=== PATIENT | male | born 1945 | race Caucasian/White ===

== ENCOUNTER → 2023-05-15 16:22 | Outpatient (REF) | payer OTHER, SELFPAY ==
[2023-05-15 14:47] LABS: % Basophils 0.3 % (0-2); % Eosinophils 2.9 % (0-6); % Immature Granulocytes 0.6 % (0-0.5); % Lymphocytes 29.7 % (20.5-51.1); % Neutrophils 56.5 % (42.2-75.2); Absolute Eosinophils 0.3 10^3/uL (0-0.7); Absolute Immature Granulocytes 0.1 10^3/uL (0-0.05); Absolute Lymphocytes 2.6 10^3/uL (1.2-3.4); Absolute Monocytes 0.9 10^3/uL (0.1-0.6); Absolute Neutrophils 4.9 10^3/uL (1.4-6.5); Hematocrit 40.4 % (39.0-52.0); Hemoglobin 13.9 g/dL (13.0-18.0); Mean Corp Hgb Conc. 34.4 g/dL (33.0-37.0); Mean Corpuscular Hgb 30.9 pg (27.0-31.0); Mean Corpuscular Volume 89.8 fL (80.0-94.0); Mean Platelet Volume 10.1 fL (7.4-10.4); Platelet Count 196 10^3/uL (130-400); Red Cell Dist. Width 14.3 % (11.5-14.5); White Blood Cell Count 8.6 10^3/uL (4.8-10.8)
[2023-05-15 15:27] LABS: ALT (SGPT) 20 U/L (0-50); AST (SGOT) 32 U/L (17-59); Albumin 3.5 g/dl (3.5-5.0); Alkaline Phosphatase 84 U/L (38-126); Blood Urea Nitrogen 30 mg/dl (9-20); Calcium 8.9 mg/dl (8.4-10.2); Carbon Dioxide 20 mmol/L (22-30); Chloride 103 mmol/L (98-107); Direct Bilirubin 0.3 mg/dl (0.0-0.4); Glucose 133 mg/dl (70-99); Magnesium 2.2 mg/dl (1.6-2.3); Potassium 3.8 mmol/L (3.5-5.1); Sodium 136 mmol/L (135-145); Total Protein 5.9 g/dl (6.3-8.2); eGFR > 60.00
[2023-05-15 15:42] LABS: Free T4 1.25 ng/dl (0.78-2.19)
[2023-05-15 15:56] LABS: TSH Reflex To Free T4 7.94 uIU/ml (0.47-4.68)
== END ==
LOC: OIDL 16:22
PROVIDERS: ATTENDING PHYSICIAN Internal Medicine Hematology & Oncology
DX: C15.9 Malignant neoplasm of esophagus, unspecified (principal)
CPT/HCPCS: 80048; 80076; 83735; 84439; 84443; 85025

== ENCOUNTER → 2023-05-16 08:08 | Outpatient (REF) | payer OTHER, SELFPAY | LOC: HWRAD 08:08 | PROVIDERS: ATTENDING PHYSICIAN Family Medicine | DX: J98.4 Other disorders of lung (principal) | CPT/HCPCS: 71250 ==

== ENCOUNTER → 2023-07-21 09:28 | Outpatient (REF) | payer OTHER, SELFPAY | LOC: HWRAD 09:28 | PROVIDERS: ATTENDING PHYSICIAN Internal Medicine Hematology & Oncology; FAMILY PHYSICIAN Family Medicine | DX: C15.9 Malignant neoplasm of esophagus, unspecified (principal) | CPT/HCPCS: 71260; 74177; Q9967 ==

== ENCOUNTER 2023-08-14 06:03 | Day surgery (SDC) | payer OTHER, SELFPAY ==
[2023-08-14] VITALS (8 sets, daily range): BP systolic 124–151; BP diastolic 66–87; BMI 22.4
== END 2023-08-14 11:10 | disposition home or self-care (01) ==
LOC: GI 06:03
PROVIDERS: ATTENDING PHYSICIAN Internal Medicine Gastroenterology
DX: K22.2 Esophageal obstruction (principal); Z85.01 Personal history of malignant neoplasm of esophagus
CPT/HCPCS: 43266; C1874; 71045; 76000; C1769

== ENCOUNTER → 2023-09-18 09:05 | Outpatient (REF) | payer OTHER, SELFPAY | LOC: HWRAD 09:05 | PROVIDERS: ATTENDING PHYSICIAN Internal Medicine Gastroenterology; FAMILY PHYSICIAN Family Medicine | DX: K22.2 Esophageal obstruction (principal) | CPT/HCPCS: 71046 ==

== ENCOUNTER → 2023-09-19 07:55 | Outpatient (REF) | payer OTHER, SELFPAY | LOC: MRI 07:55 | PROVIDERS: ATTENDING PHYSICIAN Internal Medicine Hematology & Oncology; FAMILY PHYSICIAN Family Medicine | DX: C15.9 Malignant neoplasm of esophagus, unspecified (principal) | CPT/HCPCS: 72157; A9575 ==

== ENCOUNTER → 2023-11-24 08:10 | Outpatient (REF) | payer OTHER, SELFPAY | LOC: HWRAD 08:10 | PROVIDERS: ATTENDING PHYSICIAN Internal Medicine Hematology & Oncology; FAMILY PHYSICIAN Family Medicine | DX: C15.9 Malignant neoplasm of esophagus, unspecified (principal) | CPT/HCPCS: 71260; 74177; Q9967 ==

== ENCOUNTER → 2024-01-26 08:23 | Outpatient (REF) | payer OTHER, SELFPAY | LOC: HWRAD 08:23 | PROVIDERS: ATTENDING PHYSICIAN Internal Medicine Endocrinology, Diabetes & Metabolism; FAMILY PHYSICIAN Family Medicine | DX: E27.40 Unspecified adrenocortical insufficiency (principal); Z79.52 Long term (current) use of systemic steroids | CPT/HCPCS: 77080 ==

== ENCOUNTER 2024-01-27 06:20 | Day surgery (SDC) | payer OTHER, SELFPAY ==
[2024-01-27 11:45] VITALS: BMI 22.9
[2024-01-27 11:50] VITALS: BP 118/72
[2024-01-27 12:00] VITALS: BMI 22.9
[2024-01-27 14:21] VITALS: BP 107/57
[2024-01-27 14:30] VITALS: BP 103/78
[2024-01-27 14:45] VITALS: BP 107/52
== END 2024-01-27 15:04 | disposition home or self-care (01) ==
LOC: GI 06:20
PROVIDERS: ATTENDING PHYSICIAN Internal Medicine Gastroenterology
DX: Z43.1 Encounter for attention to gastrostomy (principal); Z97.8 Presence of other specified devices; K22.2 Esophageal obstruction; C15.9 Malignant neoplasm of esophagus, unspecified; K20.90 Esophagitis, unspecified without bleeding
CPT/HCPCS: 43247

== ENCOUNTER 2024-03-23 06:32 | Day surgery (SDC) | payer OTHER, SELFPAY ==
[2024-03-23 11:45] VITALS: BMI 21.8
[2024-03-23 12:01] VITALS: BP 111/62
[2024-03-23 12:15] VITALS: BMI 21.8
[2024-03-23 15:26] VITALS: BP 111/62; BP 120/72; BP 130/66
[2024-03-23 15:30] VITALS: BP 133/69
[2024-03-23 15:45] VITALS: BP 116/72
[2024-03-23 16:00] VITALS: BP 126/66
[2024-03-23 16:20] VITALS: BP 120/62
== END 2024-03-23 16:35 | disposition home or self-care (01) ==
LOC: GI 06:32
PROVIDERS: ATTENDING PHYSICIAN Internal Medicine Gastroenterology
DX: K22.2 Esophageal obstruction (principal); C15.9 Malignant neoplasm of esophagus, unspecified; Z93.1 Gastrostomy status
CPT/HCPCS: 43249; 43236; C1726; C1769

== ENCOUNTER 2024-04-01 06:59 | Day surgery (SDC) | payer OTHER, SELFPAY ==
[2024-04-01 13:19] VITALS: BMI 21.6
[2024-04-01 13:20] VITALS: BP 134/66
[2024-04-01 15:55] VITALS: BP 119/75
[2024-04-01 16:00] VITALS: BP 128/68
[2024-04-01 16:15] VITALS: BP 113/66
== END 2024-04-01 16:37 | disposition home or self-care (01) ==
LOC: GI 06:59
PROVIDERS: ATTENDING PHYSICIAN Internal Medicine Gastroenterology
DX: K22.2 Esophageal obstruction (principal); C15.9 Malignant neoplasm of esophagus, unspecified; Z93.1 Gastrostomy status
CPT/HCPCS: 43249; 43236; C1726

== ENCOUNTER 2024-04-06 11:27 | Inpatient (IN) | payer OTHER, SELFPAY ==
[2024-04-06] VITALS (24 sets, daily range): BP systolic 133–171; BP diastolic 64–100; BMI 20.9
[2024-04-06 11:14] LABS: Hematocrit 43.4 % (39.0-52.0); Hemoglobin 13.9 g/dL (13.0-18.0); Mean Corpuscular Hgb 30.5 pg (27.0-31.0); Mean Corpuscular Volume 95.2 fL (80.0-94.0); Mean Platelet Volume 10.2 fL (7.4-10.4); Platelet Count 157 10^3/uL (130-400); Red Blood Cell Count 4.56 10^6/uL (4.70-6.10); Red Cell Dist. Width 13.7 % (11.5-14.5); White Blood Cell Count 6.8 10^3/uL (4.8-10.8)
[2024-04-06 11:16] LABS: Blood Urea Nitrogen 28 mg/dl (9-20); Calcium 8.3 mg/dl (8.4-10.2); Carbon Dioxide 24 mmol/L (22-30); Chloride 108 mmol/L (98-107); Estimated Creatinine Clearance 77 ml/min; Glucose 95 mg/dl (70-99); Potassium 3.9 mmol/L (3.5-5.1); Sodium 139 mmol/L (135-145); eGFR > 60.00
[2024-04-06] MEDS: OFIRMEV 100 IV (11:27)
--- NOTE | 2024-04-06 11:50 | HPS.HSE ---
Family Physician
-
Family Physician: NOT KNOW UNKNOWN - PT DOES
Chief Complaint
-
Post Esophageal dilation and stent placement 04/[address] Hammond
History of Present Illness
78 years old male with history of esophageal cancer and esophageal stricture was admitted to the hospital for elective dilation of stricture by community administrator. Patient underwent procedure and sustained and significant submucosal tear in the
lower third of esophagus during the procedure. No obvious perforation was noted. Patient was admitted for observation. In the postoperative period, patient was hemodynamic stable. He had pain in the upper esophageal/throat area that he described
as severe but he had it in the previous procedures when he had esophageal dilation in the past. Patient is on liquid diet at home. He is on Jevity for nutrition. Repeat blood work did not show leukocytosis. Gastroenterology recommended repeat CT
chest if instability otherwise should be stable to go home after 24 hours observation. Patient denied abdominal pain.. No hypoxia.
Medical History
Past Medical History
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
Past Surgical History: Reports Other (History of PEG tube placement, history of esophageal dilation and stent placement with removal.)
Social History
Tobacco: Former Smoker
Alcohol: Occasional
Drug: Marijuana (Mostly for sleep)
Family History
Family History: Other (His father had prostate cancer, coronary artery disease, age 91, his mother at 95, history of Alzheimer and heart issue. one Sister with type 2 diabetes.)
Allergies / Home Medications
Allergies reflects when Allergies were last updated in [facility].
Home Medications with original date entered in [facility]
Allergy/Medication List:
Allergies
Allergy/AdvReac Type Severity Reaction Status Date / Time
goodson Allergy Shortness Verified 04/06/24 06:47
of Breath
adhesive tape AdvReac Unknown Verified 04/06/24 06:47
Home Medications
Medical Marijuana Drops 6 squirt PO DAILYPRN PRN nausea 11/16/21
acetaminophen 325 mg tablet (Tylenol) 650 mg PO Q4HPRN PRN mild pain 01/15/22
prednisone 5 mg/5 mL oral syrup 6 mg PO DAILY 08/14/23
lactose-reduced food with fiber 0.06 gram-1.5 kcal/mL oral liquid (Jevity 1.5 Ayan) 240 feeding tube DIRECTED 04/06/24
Review of Systems
-
History Source: Patient
A 12 point ROS was completed and negative except as noted: Yes
Constitutional: Denies Fever
EENT: Reports Other (Throat pain); Denies Sore Throat
Respiratory: Denies Cough
Cardiac: Denies Chest Pain
Abdomen/GI: Denies Abdominal Pain or Nausea
: Denies Dysuria
Musculoskeletal: Denies Joint Pain
Skin: Denies Itching
Neurological: Denies Headache or Numbness
Hematologic/Lymphatic: Denies Bruising
Psych: Denies Panic Disorder
Physical Exam
Vital Signs
Vital Signs
Temp Pulse Resp BP Pulse Ox
98.1 F 45 15 155/64 98
04/06/24 10:16 04/06/24 11:45 04/06/24 11:45 04/06/24 11:45 04/06/24 11:45
Physical Exam
General: No Apparent Distress and Comfortable
HEENT: Moist mucous membranes and Atraumatic
Respiratory: Clear
Cardiac: S1/S2 and Murmur
GI: Soft, Non Tender and Peg Tube
Rectal: No Maroon Stools
Genito-urinary: No Gibbons
Musculoskeletal: No Clubbing, No Cyanosis and No Edema
Skin: No Jaundice
Neuro: AO x 3; No Slurred Speech, Facial Droop or Tremors
Psych: Calm and Intact Judgment/Insight
Laboratory Results
-
04/06/24 10:51
04/06/24 10:51
Impression/Plan
-
78 years old male presented for elective esophageal dilation procedure
#Status post esophageal dilation with stents placement with submucosal tear.
History of dysphagia
Patient has history of intolerance to esophageal stents in the past. It was removed in January 2024 but patient started to have dysphagia and was admitted for elective dilation. Patient reports that he is on liquid diet at home. He takes Jevity
also.
Will continue with PPI, pain control with morphine, patient agreed to use morphine
Follow-up with GI recommendations
No leukocytosis. No fever. No tachycardia or hemodynamic instability noted
# Status post PEG tube placement
# History of marijuana use for insomnia. We will give as needed Klonopin as needed
#Steroid dependency
Will continue with daily prednisone
#DVT prophylaxis
#History of stage IV esophageal cancer
Total time spent to see the patient, examine the patient, review data and lab results, discuss the treatment plan with patient, GI doctor, nursing staff around 75 minutes
--- NOTE | 2024-04-06 12:04 | CON.GI ---
Addendum entered and electronically signed by Daniele Hammond MD 04/06/24 21:53:
I saw and examined the patient.
The PA's note was reviewed and I agree with the note.
Comment:
Admitted for observation after EGD - s/p dilation which showed defect concerning for possible perforation in the distal esophagus, although no obvious transmural defect was seen. Empirical esophageal stent placed. C/o throat pain post procedure,
which is likely from passage of overstitich device. If pain persists/worsens, CT neck/chest o/n, if improves then recommend CT chest tomorrow. If clinically stable and CT chest rules out collection, then would start diet and consider d/c home
tomorrow.
Addendum entered and electronically signed by Emilie Avila MD 04/06/24 17:32:
Patient seen by Dr. Hammond today at procedure.
Please see full procedure report and recommendations in [facility].
Original Note:
Consultation
-
Date/Time Consultation Requested: 04/06/24 1033
Date/Time Consultation Performed: 04/06/24 1215
Requesting Provider: Dr. Daniele Hammond
Performing Provider: Dr. Avila / Ashley Olson PA-C
Reason for Consultation: post-dilation complication
Medical History
Chief Complaint / HPI
Chief Complaint: post-dilation complication
History of Present Illness:
This is a 78 year old male with a past medical history of metastatic esophageal adenocarcinoma (dx'd 2021, s/p chemotherapy with good response) complicated by recurrent esophageal stricture with prior dilations and esophageal stenting,
well-known to Dr. Hammond, who underwent endoscopy today with balloon dilation with Dr. Hammond, with concern for esophageal perforation. Per the endoscopy note, there was a submucosal tear in the lower third of the esophagus without obvious transmural
defect. Empiric esophageal stent was placed. No bleeding. Patient is s/p PEG tube placement (on tube feeds) and had been tolerating some solid food. Currently patient is post-endoscopy, recovering in PACU and does complain of throat discomfort, but
otherwise feels OK. He denies chest pain, abdominal pain, nausea, vomiting or shortness of breath.
Past Medical History
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
Past Surgical History: Other (s/p PEG, esophageal stenting (Jose))
Social History
Tobacco: Former Smoker
Alcohol: Occasional
Drug: Marijuana
Family History
Family History: Other (maternal grandfather had colon cancer)
Allergies / Home Medications
Allergy/AdvReac Type Severity Reaction Status Date / Time
goodson Allergy Shortness Verified 04/06/24 06:47
of Breath
adhesive tape AdvReac Unknown Verified 04/06/24 06:47
�Medication �Instructions �Recorded
Medical Marijuana Drops 6 squirt PO DAILYPRN PRN nausea 11/16/21
acetaminophen 325 mg tablet 650 mg PO Q4HPRN PRN mild pain 01/15/22
(Tylenol)
prednisone 5 mg/5 mL oral syrup 6 mg PO DAILY 08/14/23
lactose-reduced food with fiber 240 feeding tube DIRECTED 04/06/24
0.06 gram-1.5 kcal/mL oral liquid
(Jevity 1.5 Ayan)
Review of Systems
-
History Source: Patient
All other systems: A 12 pt ROS was Negative except as stated above in HPI
Vital Signs
Temp Pulse Resp BP Pulse Ox
98.1 F 45 15 155/64 98
04/06/24 10:16 04/06/24 11:45 04/06/24 11:45 04/06/24 11:45 04/06/24 11:45
Physical Exam
Exam
General: Well Developed, Well Nourished and No Apparent Distress
Respiratory: Clear
Cardiac: Regular Rhythm
GI: Soft, Non Tender, Non Distended, Normal Bowel Sounds and Other (+PEG tube)
Skin: Warm and Dry
Neuro: AO x 3
Psych: Calm
Results
WBC 6.8 10^3/uL (4.8-10.8) 04/06/24 10:51
Hgb 13.9 g/dL (13.0-18.0) 04/06/24 10:51
Hct 43.4 % (39.0-52.0) 04/06/24 10:51
MCV 95.2 fL (80.0-94.0) H 04/06/24 10:51
Plt Count 157 10^3/uL (130-400) 04/06/24 10:51
Sodium 139 mmol/L (135-145) 04/06/24 10:51
Potassium 3.9 mmol/L (3.5-5.1) 04/06/24 10:51
Chloride 108 mmol/L (98-107) H 04/06/24 10:51
Carbon Dioxide 24 mmol/L (22-30) 04/06/24 10:51
BUN 28 mg/dl (9-20) H 04/06/24 10:51
Creatinine 0.7 mg/dL (0.7-1.3) 04/06/24 10:51
Calcium 8.3 mg/dl (8.4-10.2) L 04/06/24 10:51
Diagnostic Image Results:
Prior GI Procedures:
04/06/24 Endoscopy (Dr Hammond):
- Benign-appearing esophageal stenosis which appeared improved. Dilated.
- Clinically significant submucosal tear in the lower
third of the esophagus. No obvious transmural
perforation was noted. Decision was made to
empirically place prosthesis. Endoscopic suturing
performed.
- The PEG was found in the stomach.
- Normal duodenal bulb, first portion of the duodenum
and second portion of the duodenum.
- No specimens collected
Assessment / Plan
-
78 year old male with a h/o esophageal cancer with recalcitrant stricture s/p prior dilations and esophageal stent, who underwent outpatient endoscopy with esophageal dilation today with Dr. Hammond with concern for possible perforation/submucosal tear.
+complaints of throat pain now. No chest pain or abdominal pain.
IMPRESSION / PLAN:
S/p esophageal dilation with submucosal tear of the distal third of the esophagus, with stent placed
- patient admitted from outpatient procedure for observation
- continue PPI
- clear liquid diet - encourage small sips of clears
- analgesia per hospitalist
- plan to perform CT scan of the chest tomorrow.
- if the throat pain worsens, would perform both CT chest and neck today
- will hold off on empiric antibiotics at this time, continue to monitor patient's clinical condition
- Per Dr. Hammond, if patient's clinical status is stable and CT chest does not show any collection, may be d/c'ed home
tomorrow with planned outpatient follow-up in 6 weeks.
-
-
Thank you for consultation and allowing me to participate in the patient's care. Please call the director of campus recreation GI physician during the after hours with any questions or concerns.
[2024-04-06] MEDS: DILAUDID 0.25 MG IV (12:38)
--- NOTE | 2024-04-06 13:25 | SUR.PHASEI ---
1325 - patient very quiet. ' I don't want to talk.' Throat is sore - but refuses to try ice chips po. Does not want phone. here - visits briefly at bedside in PACU. Advised that patient 'doesn't wish to talk' She stated 'well of
course' Continue to await available bed.
--- NOTE | 2024-04-06 13:50 | SUR.PHASEI ---
room available - discharge to room on tele - asked patient if I could call with room number and update - patient states 'no'
[2024-04-06] MEDS: DELTASONE 6 MG TUBE (16:13)
[2024-04-06] MEDS: MORPHINE SULFATE 4 MG IV ×2 (16:14→20:16)
[2024-04-06] MEDS: ZOFRAN 4 MG IV (16:24)
--- NOTE | 2024-04-06 17:54 | PTCARENOTE ---
pt admitted to room 2100 from the PACU at 1400. pt assisted to ambulate from hallway to bed. pt oriented to room, call schumacher, bed controls and plan of care with verbalized understanding. admission database completed -pt hesitant to speak much
do to soreness in throat. pt instructed concerning allowed sips of clear liquids-pt refusing any oral intake, water at bedside. G-tube patent - flushed and meds given per JUN. medicated with morphine per JUN and zofran for c/o nausea. resting
at this time. care ongoing.
[2024-04-06] MEDS: HEPARIN 5000 UNITS SC (20:16)
[2024-04-06] MEDS: KLONOPIN 0.5 MG PO (21:09)
--- NOTE | 2024-04-06 23:26 | PTCARENOTE ---
2030: pt DTV - stated had no need to void. was bladder scanned for 499. asked pt if pt would like to try to void post procedure, pt stated 'I know how to go, if I need to go then I will but I don't need to be straight cath. Pt educated on Bladder
scan/ straight cath protocol. Pt verbalized understanding but still refused straight cath. Assessment ongoing.
[2024-04-07] MEDS: MORPHINE SULFATE 4 MG IV ×2 (00:20→04:20)
[2024-04-07] MEDS: TYLENOL 1000 MG TUBE (00:21)
[2024-04-07] MEDS: CHLORASEPTIC/SORE THROAT SPRAY 1 SPRAY PO (01:17)
[2024-04-07 03:55] VITALS: BP 148/78
[2024-04-07 06:00] VITALS: BMI 21.1
[2024-04-07 07:00] VITALS: BP 149/64
[2024-04-07] MEDS: PROTONIX IV 40 MG IV (09:16)
[2024-04-07] MEDS: HEPARIN 5000 UNITS SC (09:21)
[2024-04-07] MEDS: DELTASONE TUBE (09:22)
--- NOTE | 2024-04-07 09:44 | W.PN.HOSP.TC ---
Today's Communication/Plan
-
dc
Assessment / Plan
Assessment / Plan
Physical Exam
General: No Apparent Distress and Comfortable
HEENT: Moist mucous membranes and Atraumatic
Respiratory: Clear
Cardiac: S1/S2 and Murmur
GI: Soft, Non Tender and Peg Tube
Rectal: No Maroon Stools
Genito-urinary: No Gibbons
Musculoskeletal: No Clubbing, No Cyanosis and No Edema
Skin: No Jaundice
Neuro: AO x 3; No Slurred Speech, Facial Droop or Tremors
Psych: Calm and Intact Judgment/Insight
78 years old male presented for elective esophageal dilation procedure
#Status post esophageal dilation with stents placement with submucosal tear.
History of dysphagia
Pain in throat is less per patient and is similar to post- procedure pain he had before
CT of neck and chest showed redemonstration of esophageal stent extending from the mid thoracic esophagus to the proximal stomach, similar to prior. Similar degree of surrounding soft tissue thickening and foci of gas in keeping with chronic
postoperative and persistent inflammatory change.
Pt is anxious to go home ( he reports having people at his house for day celebration and would like to leave [facility]).
I d/w GO-financial sales consultant doctor, ok to go home.
# Right lower lobe PNA seen on CT chest
Pt has no cough, hypoxia, fever or leukocytosis
Clinically no signs of PNA
Right lobe infiltration seems c/w aspiration pneumonitis.
# Status post PEG tube placement
Pt feels comfortable using his diet regimen at home.
# History of marijuana use for insomnia. We will give as needed Klonopin as needed
#Steroid dependency
Will continue with daily prednisone
#DVT prophylaxis
#History of stage IV esophageal cancer
Total discharge time spent to see the patient, examine the patient, review data and lab results, discuss the discharge plan with patient, GI doctor, nursing staff around 65 minutes
Anticipated Discharge: Today
Subjective/Interval History
-
Date of Service: April 07, 2024
He feels pain in throat is less and similar to prior post procedure pain
No cough
No sob
No fevers or chills
Objective Data
-
Vital Signs:
Vital Signs
Temp Pulse Resp BP Pulse Ox
98.0 F 67 16 149/64 97
04/07/24 07:00 04/07/24 07:00 04/07/24 07:00 04/07/24 07:00 04/07/24 07:00
I&O
04/06/24 04/07/24 04/08/24
06:59 06:59 06:59
Intake Total 600 / 600
Output Total 475 / 475
Balance 125 / 125
--- NOTE | 2024-04-07 10:32 | W.PN.UPDATE ---
Update Note
Progress Note Update
CT Neck and Chest performed today w/o evidence of esophageal perforation, chronic changes visualized-- 'Redemonstration of esophageal stent extending from the mid thoracic esophagus to the proximal stomach, similar to prior. Similar degree of
surrounding soft tissue thickening and foci of gas in keeping with chronic postoperative and persistent inflammatory change.'
Okay to d/c today. F/u with Dr. Hammond as outpatient.
--- NOTE | 2024-04-07 12:04 | CM ---
CM reviewed chart. CM introduced self and role. Patient lives with his Annie. They live in a 2 story home with 3 step to enter and 12 steps to bed and bathroom. He is independent. Does not own any DME. He drives. He is a retired CPA. He has
an active PCP and pharmacy. He denied any +SDOHs.
DISCHARGE PLAN: Home, with transporting. Discharge order has been placed.
IMM explained to patient. He verbalized understanding and signed. Copy of form given to patient.
--- NOTE | 2024-04-07 12:40 | W.DCSUMMARY ---
Discharge Summary
Discharge Data
Date of Admission: 04/06/24
Date of Discharge: 04/07/24
-
Pending Results: No
Hospital Course
78 years old male who underwent elective esophageal dilation with stent replacement for treatment of chronic dysphagia. During the esophageal dilation procedure, there was suspicion of submucosa perforation or tear. Patient was admitted to the
hospital for observation. He remained hemodynamically stable. Patient did not have fever, hypoxia or cough. Patient complained of throat pain but he reported was similar in quality prior pain after previous procedures. He was given pain
medication. Patient was able to tolerate clear liquids. Patient takes Jevity feeding tube at home. Patient has history of esophageal adenocarcinoma with a chronic dysphagia. He has history of esophageal stent placement. Patient had a follow-up
scan of the neck and chest that showed esophageal stent extending from the mid thoracic esophagus to the proximal stomach with similar degree of surrounding soft tissue thickening and persistent inflammatory changes. Scan of the chest also showed
right lower lobe infiltrate/pneumonia which was consistent with aspiration pneumonitis more than infectious pneumonia. Patient did not have fever, cough, hypoxia or leukocytosis and he felt better. Patient was followed by airplane gastank liner assembler and
was discharged home in a stable condition.
Discharge Plan
-
Patient Disposition: Home (Routine Discharge)
Discharge Diagnosis/Procedures: Chronic dysphagia status post dilation which showed defect concerning for possible tear/ perforation in the distal esophagus, although no obvious transmural defect was seen by Dr. Hammond. Empirical esophageal stent
placed. CT images showed Redemonstration of esophageal stent extending from the mid thoracic esophagus to the proximal stomach, similar to prior. Similar degree of surrounding soft tissue thickening and foci of gas in keeping with chronic
postoperative and persistent inflammatory change. Right lower lobe infitrate that can reflect aspiration pneumonitis. You did not have hypoxia or fever or leukocytosis.
Additional Diets: continue your home diet regimen
Referrals:
UNKNOWN - PT DOES,NOT KNOW [Family Provider] -
Prescriptions:
Continued
Medical Marijuana Drops
6 squirt PO DAILYPRN PRN (Reason: nausea)
acetaminophen [Tylenol] 325 mg Tablet
650 mg PO Q4HPRN PRN (Reason: mild pain)
prednisone 5 mg/5 mL Syrup
6 mg PO DAILY
Jevity 1.5 Ayan 0.06 gram-1.5 kcal/mL Liquid
240 feeding tube DIRECTED
Discharge Orders:
Discharge Patient (As Directed); Ordered 04/07/24
Ordered By: Charlee Collins
Discharge Date and Time
Discharge Date/Time: 04/07/24 11:39
Print Language: DANISH
== END 2024-04-07 11:39 | disposition home or self-care (01) | DRG 391 ==
LOC: 2 SOUTH 11:27
PROVIDERS: Internal Medicine Gastroenterology; ADMITTING PHYSICIAN Internal Medicine; OTHER PHYSICIAN Internal Medicine Gastroenterology
PROC: 0D738DZ Dilation of Lower Esophagus with Intraluminal Device, Via Natural or Artificial Opening Endoscopic (ICD-10-PCS; 2024-04-06)
DX: K22.2 Esophageal obstruction (principal); J69.0 Pneumonitis due to inhalation of food and vomit; K91.71 Accidental puncture and laceration of a digestive system organ or structure during a digestive system procedure; E27.3 Drug-induced adrenocortical insufficiency; E55.9 Vitamin D deficiency, unspecified; E78.5 Hyperlipidemia, unspecified; G62.0 Drug-induced polyneuropathy; T45.AX5A Adverse effect of immune checkpoint inhibitors and immunostimulant drugs, initial encounter; R13.19 Other dysphagia; Z93.1 Gastrostomy status; Z87.891 Personal history of nicotine dependence; Z85.01 Personal history of malignant neoplasm of esophagus; Z79.52 Long term (current) use of systemic steroids; Y84.8 Other medical procedures as the cause of abnormal reaction of the patient, or of later complication, without mention of misadventure at the time of the procedure
CPT/HCPCS: 70490; 71250; 74330; 76000; 80048; 85027; C1726; C1769; C1874

== ENCOUNTER 2024-04-20 10:02 | Emergency (ER) | payer OTHER, SELFPAY ==
[2024-04-20] VITALS (18 sets, daily range): BP systolic 91–128; BP diastolic 60–93
[2024-04-20] MEDS: NSS 500 IV ×2 (10:29→13:08)
--- NOTE | 2024-04-20 10:30 | ED.GENMED ---
History of Present Illness
General
Chief Complaint: Heart Rate Problem
Source: patient
Exam Limitations: none
Time Seen by Provider: 04/20/24 10:05
Nursing documentation reviewed up to this point in time: agreed with
History of Present Illness
History of Present Illness:
Patient with history of esophageal cancer, status post esophageal stent placement secondary to dysphagia last month, with concern for potential tear after the procedure, presents to ED after he was found to be in SVT by paramedics this morning, as
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 Denies fever or chills. Denies dizziness. Denies shortness of breath. Denies chest palpitations. Denies previous
history of similar symptoms. Patient states that he drinks very little by mouth, as most feeds are done through his G-tube.
Past History
Past History
ED Past Medical History: Cancer (Stage IV metastatic esophageal cancer)
ED Past Surgical History: Other (Liver biopsy)
Social History
Tobacco: Smoker
Alcohol: Occasional
Drug: None
Personal:
Living: with family (With arnold�)
Review of Systems
Review of Systems
Allergies reviewed?: Yes
All Other Systems: ROS reviewed and negative except as documented in HPI and ROS
Constitutional: Reports no symptoms
EENT: Reports sore throat
Respiratory: Reports no symptoms
Cardiac: Reports no symptoms
ABD/GI: Reports no symptoms
Musculoskeletal: Reports no symptoms
Skin: Reports no symptoms
Neurological: Reports no symptoms
Phy Exam
Physical Exam
Physical Exam:
Physical Exam
General: no apparent distress, not acutely ill. afebrile. tachycardic.
Head: nc/at. eomi
Neck: supple. no meningeal signs. normal posterior pharynx
Heart: tachycardic, no murmur. equal radial pulses.
Lungs: no acute respiratory distress. clear bilaterally
Abdomen: normal bowel sounds. not tender. G-tube noted over LUQ
Neuro: alert and oriented x 3. no focal neurological deficits
Skin: no rash
Psychiatric: well kept. interactive and cooperative
Extremities: no edema. no calf tenderness.
Course
Orders/Labs/Results
Orders:
Orders
04/20/24
Electrocardiogram (*1) Stat
Other Reason for Exam: AFIB
Comment: DONE
Electrocardiogram (*1) Stat
Reason for Study: Atrial Fibrillation
Comment: DONE
04/20/24 10:04
EKG [Electrocardiogram (*1)] Urgent
Reason for Study: Abnormal EKG
04/20/24 10:05
EKG- Treatment ONCE
04/20/24 10:26
0.9% Sodium Chloride 500 ml [Nss] 500 ml IV BOLUS
04/20/24 10:33
CMP [Comprehensive Metabolic Panel] Urgent
Complete Blood Count/With Diff Urgent
Magnesium Urgent
TSH Urgent
04/20/24 10:52
CT Neck W/wo Iv Contrast Urgent
Comment:
Reason For Exam: throat pain, recent procedure
04/20/24 10:53
CT Chest W/wo Iv Contrast Urgent
Comment:
Reason For Exam: throat pain, s/p procedure
04/20/24 11:20
Metoprolol [Lopressor] 5 mg IV NOW STA
04/20/24 11:22
Diltiazem HCl [Cardizem] 10 mg IV NOW STA
04/20/24 11:30
Diltiazem 125 mg/125 ml Nss [Cardizem] 125 mg in 125 ml IV PER PROTOCOL
Initial dose in mg/hr, then titrate:: 5
Titrate to keep:: Heart rate 80-100 bpm
Titrate by mg/hr:: 5 mg/hr
Frequency of titrations (minutes):: 15
Maximum dose in mg/hr:: 15
04/20/24 12:54
Piperacillin/Tazo 3.375 Gram [Zosyn] 3.375 gram in 50 ml IV NOW
04/20/24 12:56
0.9% Sodium Chloride 500 ml [Nss] 500 ml IV BOLUS
04/20/24 13:00
Fentanyl Citrate/Pf [Sublimaze] 50 mcg IV NOW STA
04/20/24 13:10
Electrocardiogram (*1) Urgent
Reason for Study: Tachycardia
EKG- Treatment ONCE
Abnormal Lab Results
04/20/24
10:33
WBC 18.2 H 10^3/uL
(4.8-10.8)
MCHC 32.8 L g/dL
(33.0-37.0)
RDW 14.8 H %
(11.5-14.5)
Plt Count 451 H 10^3/uL
(130-400)
Abs Immat Gran (auto) 0.2 H 10^3/uL
(0-0.05)
Absolute Neuts (auto) 14.3 H 10^3/uL
(1.4-6.5)
Absolute Monos (auto) 1.0 H 10^3/uL
(0.1-0.6)
Immature Gran % 1.2 H %
(0-0.5)
Neutrophils % 78.2 H %
(42.2-75.2)
Lymphocytes % 14.4 L %
(20.5-51.1)
BUN 35 H mg/dl
(9-20)
Creatinine 0.5 L mg/dL
(0.7-1.3)
Glucose 128 H mg/dl
(70-99)
Magnesium 2.4 H mg/dl
(1.6-2.3)
Alkaline Phosphatase 133 H U/L
(38-126)
Albumin 3.2 L g/dl
(3.5-5.0)
04/20/24 10:33
04/20/24 10:33
Vital Signs
Initial and Last Documented VS:
Initial Vital Signs
Temp Pulse Resp BP Pulse Ox
97.6 F 172 24 122/80 89
04/20/24 10:08 04/20/24 10:08 04/20/24 10:08 04/20/24 10:08 04/20/24 10:08
Last Documented Vital Signs
Temp Pulse Resp BP Pulse Ox
98.2 F 89 20 116/70 95
04/20/24 15:00 04/20/24 15:00 04/20/24 15:00 04/20/24 15:00 04/20/24 15:00
MDM/Problems Addressed
MDM/Problems Addressed:
Patient immediately evaluated upon arrival secondary to SVT. Patient given IV fluids along with Cardizem, with improvement in vital signs. Patient remains asymptomatic.
CT report reviewed and discussed with patient/family, as well as patient's primary GI physician, Dr. Hammond. Dr. Hammond recommends the patient to be transferred to [facility] under CT surgery service based on CT findings.
Zosyn given.
Discussed with , CT surgery @ [place], who agreed to accept patient for transfer.
Transfer consent on the chart.
Critical care statement: A total of 40 minutes of critical care time was provided for this patient. This includes management of unstable vital signs, evaluation of the patient at bedside, reviewing the patient's pertinent medical records, discussion
with consultants, review of old EKGs and review of pertinent medical records. This time with separate from time utilized to perform the aforementioned documented procedures
*EKG
Interpreted by ED Provider?: Yes
EKG Intrepretation Date: 04/20/24
Heart Rate: 170
Rate: tachycardiac
Rhythm: sinus
[place]: normal axis
Interval: normal interval
*Critical Care Note
Total Time (30-74mins, 75-104mins- exclusive of procedures): 40 min
ED Attending Note
-
Portions of this chart may have been created with voice recognition software.� Occasional wrong word or��sound alike� substitutions may have occurred due to the inherent limitations of voice recognition software.
Discharge Plan
Departure
Patient Disposition: Acute Care Hospital
Date of Disposition: 04/20/24
Time of Disposition: 14:21
Discharge Problem:
Perforation esophagus, Abscess
Prescriptions:
No Action
Medical Marijuana Drops
6 squirt PO DAILYPRN PRN (Reason: nausea)
acetaminophen [Tylenol] 325 mg Tablet
650 mg PO Q4HPRN PRN (Reason: mild pain)
prednisone 5 mg/5 mL Syrup
6 mg PO DAILY
Jevity 1.5 Ayan 0.06 gram-1.5 kcal/mL Liquid
1 ea PO 5/D
Referrals:
UNKNOWN - PT DOES,NOT KNOW [Family Provider] -
Hospital Transfer
Other hospital: [facility]
I certify that the patient requires transfer: Yes
Discussed case with accepting physician:
Reason for transfer: higher level of care, medical necessity, availability of service and specialties available
Interventions
Interventions:
*Risk Screen - Suicide Last Done: 04/20/24 10:08
*General Assessment Last Done: 04/20/24 11:51
*Neglect/Abuse Screening Last Done: 04/20/24 10:08
ED- Fall Risk Assessment Last Done: 04/20/24 10:20
*ED COVID-19 Vaccine History Last Done: 04/20/24 10:08
*Nursing Disposition Last Done: 04/20/24 15:00
ED- Cardiac Assessment Last Done: 04/20/24 10:20
ED- Pulmonary Assessment Last Done: 04/20/24 10:20
Discharge Date and Time
Discharge Date/Time: 04/20/24 15:04
Print Language: BULGARIAN
[2024-04-20 10:50] LABS: % Basophils 0.4 % (0-2); % Eosinophils 0.2 % (0-6); % Immature Granulocytes 1.2 % (0-0.5); % Lymphocytes 14.4 % (20.5-51.1); % Monocytes 5.6 % (1.7-9.3); % Neutrophils 78.2 % (42.2-75.2); Absolute Basophils 0.1 10^3/uL (0-0.2); Absolute Immature Granulocytes 0.2 10^3/uL (0-0.05); Absolute Lymphocytes 2.6 10^3/uL (1.2-3.4); Absolute Neutrophils 14.3 10^3/uL (1.4-6.5); Hematocrit 46.4 % (39.0-52.0); Hemoglobin 15.2 g/dL (13.0-18.0); Mean Corp Hgb Conc. 32.8 g/dL (33.0-37.0); Mean Corpuscular Hgb 30.3 pg (27.0-31.0); Mean Corpuscular Volume 92.6 fL (80.0-94.0); Nucleated Red Blood Cells % 0 % (-); Platelet Count 451 10^3/uL (130-400); Red Blood Cell Count 5.01 10^6/uL (4.70-6.10); Red Cell Dist. Width 14.8 % (11.5-14.5); White Blood Cell Count 18.2 10^3/uL (4.8-10.8)
[2024-04-20 11:00] LABS: ALT (SGPT) 28 U/L (0-50); AST (SGOT) 25 U/L (17-59); Albumin 3.2 g/dl (3.5-5.0); Alkaline Phosphatase 133 U/L (38-126); Blood Urea Nitrogen 35 mg/dl (9-20); Calcium 8.7 mg/dl (8.4-10.2); Carbon Dioxide 23 mmol/L (22-30); Chloride 103 mmol/L (98-107); Glucose 128 mg/dl (70-99); Magnesium 2.4 mg/dl (1.6-2.3); Potassium 4.3 mmol/L (3.5-5.1); Sodium 141 mmol/L (135-145); Total Bilirubin 0.9 mg/dl (0.2-1.3); Total Protein 6.6 g/dl (6.3-8.2); eGFR > 60.00
[2024-04-20 11:29] LABS: TSH 1.21 uIU/ml (0.47-4.68)
[2024-04-20] MEDS: CARDIZEM 10 MG IV (11:34)
[2024-04-20] MEDS: CARDIZEM 125 IV (11:36)
--- NOTE | 2024-04-20 11:42 | EDRN ---
Patient medicated with Cardizem 10mg IV bolus and drip started at 5mg/HR.
--- NOTE | 2024-04-20 12:10 | EDRN ---
at bedside. stated that the patient was scheduled today as an outpatient for CT scan but was too weak to walk to the car. stated that the patient has not been giving himself his tube feedings like he's supposed to and will not let her
assist him with it. Patient stated that 'it hurts too much for me to sit up to give myself the tube feedings'. Patient now with c/o throat pain. Patient denied any pain on arrival. stated that he never told her that he's been having pain until
yesterday and spoke to .
[2024-04-20] MEDS: SUBLIMAZE 50 MCG IV (13:06)
[2024-04-20] MEDS: ZOSYN 50 IV (13:06)
--- NOTE | 2024-04-20 13:18 | EDRN ---
Cardizem drip stopped per . Patient converted back into sinus rhythm.
--- NOTE | 2024-04-20 14:57 | EDRN ---
Report given to [place] [employer] crew and [facility] at [place].
== END 2024-04-20 15:04 | disposition short-term general hospital (02) ==
LOC: EMR 10:02
PROVIDERS: EMERGENCY PHYSICIAN Emergency Medicine
DX: K22.3 Perforation of esophagus (principal); J85.3 Abscess of mediastinum; I47.10 Supraventricular tachycardia, unspecified; C15.9 Malignant neoplasm of esophagus, unspecified; C79.9 Secondary malignant neoplasm of unspecified site; R13.10 Dysphagia, unspecified; Z93.1 Gastrostomy status; Z98.890 Other specified postprocedural states; Z87.891 Personal history of nicotine dependence; Z91.048 Other nonmedicinal substance allergy status
CPT/HCPCS: 99291; 96367; 96366; 96361; 96365; 96375 ×2; 96376; 70492; 71270; 80053; 83735; 84443; 85025; 93005; Q9967

== ENCOUNTER 2024-05-06 19:56 | Inpatient (IN) | payer OTHER, SELFPAY ==
[2024-05-06 20:10] VITALS: BP 117/63; BMI 21.8
--- NOTE | 2024-05-06 20:29 | HPS.HSE ---
Addendum entered and electronically signed by Buddy Donnelly MD 05/06/24 23:56:
Discharge summary now available.
Upon arrival to [facility] patient was taken urgently for left neck washout. He had CT esophagram which showed new high density fluid collection which may represent hematoma/gas and fluid collection. Vancomycin and Zosyn and fluconazole were continued.
Was taken for EGD on 04/23 and found to have esophageal perforation once esophageal stent was removed. GI washed out neck and replaced esophageal stent. ENT was consulted and was concerning for left TVC paresis with complete glottic closure.
Patient was on TPN. Patient underwent L VATS with mediastinal abscess washout on 04/26 as well as laparoscopic jejunostomy tube placement. Zosyn was changed to Unasyn. On 04/30 chest tube was removed. Patient had diarrhea and was negative for C.
difficile.
Original Note:
Family Physician
-
Family Physician: Price Nolasco
Chief Complaint
-
transfer
History of Present Illness
78-year-old male past medical history of metastatic esophageal adenocarcinoma status post chemotherapy complicated by recurrent esophageal stricture with prior dilatation/esophageal stenting presenting as transfer from [place].
Patient underwent endoscopy with balloon dilatation on 04/06 with concern for esophageal perforation. There was a submucosal tear in the lower third of the esophagus. Empiric esophageal stent was placed. Patient had follow-up scan of the neck and
chest which showed esophageal stent extending from the mid thoracic esophagus to the proximal stomach with soft tissue thickening/persistent inflammatory changes and evidence of aspiration pneumonitis. Patient was discharged home.
He arrived at [facility] on 04/20 after he was found to be in SVT by paramedics. He was treated with rate control. He was also complaining of neck pain and CT neck showed right large abscess in the left side of the mediastinum extending
superiorly into the left neck within the left carotid space to the C5 vertebral level. He was recommended to be transferred to [place].
He was transferred to [place] and underwent washout with placement of drains which have been subsequently removed.
At this time he complains of ongoing chest pain but denies any neck pain.
Medical History
Past Medical History
Past Medical History: Reports Other ( metastatic esophageal adenocarcinoma status post chemotherapy complicated by recurrent esophageal stricture with prior dilatation/esophageal stenting )
Past Surgical History: Reports Other (History of PEG tube placement, history of esophageal dilation and stent placement with removal.))
Social History
Tobacco: Non-smoker
Alcohol: None
Drug: None
Family History
Family History: Not pertinent
Allergies / Home Medications
Allergies reflects when Allergies were last updated in [employer].
Home Medications with original date entered in [employer]
Allergy/Medication List:
Allergies
Allergy/AdvReac Type Severity Reaction Status Date / Time
goodson Allergy Shortness Verified 04/20/24 10:18
of Breath
adhesive tape AdvReac Unknown Verified 04/20/24 10:18
Home Medications
Medical Marijuana Drops 6 squirt PO DAILYPRN PRN nausea 11/16/21
acetaminophen 325 mg tablet (Tylenol) 650 mg PO Q4HPRN PRN mild pain 01/15/22
prednisone 5 mg/5 mL oral syrup 6 mg PO DAILY 08/14/23
lactose-reduced food with fiber 0.06 gram-1.5 kcal/mL oral liquid (Jevity 1.5 Ayan) 1 ea PO 5/D 04/06/24
Review of Systems
-
History Source: Patient
A 12 point ROS was completed and negative except as noted: Yes
Constitutional: Reports No Symptoms
EENT: Reports No Symptoms
Respiratory: Reports No Symptoms
Cardiac: Reports No Symptoms
Abdomen/GI: Reports No Symptoms
: Reports No Symptoms
Musculoskeletal: Reports No Symptoms
Skin: Reports No Symptoms
Neurological: Reports No Symptoms
Endocrine: Reports No Symptoms
Hematologic/Lymphatic: Reports No Symptoms
Psych: Reports No Symptoms
Physical Exam
Vital Signs
Vital Signs
Temp Pulse Resp BP Pulse Ox
98.2 F 72 20 117/63 97
05/06/24 20:10 05/06/24 20:10 05/06/24 20:10 05/06/24 20:10 05/06/24 20:10
Physical Exam
General: Well Developed, Well Nourished and No Apparent Distress
HEENT: NormoCephalic, Moist mucous membranes and Atraumatic
Respiratory: Clear
Cardiac: S1/S2 and Regular Rhythm; No Murmur or Rub
GI: Soft, Non Tender, Non Distended and Normal Bowel Sounds; No Organomegaly
Rectal: Deferred by Provider
Musculoskeletal: No Clubbing, No Cyanosis and No Edema
Skin: No Rash
Neuro: Nonfocal/grossly intact
Data Reviewed
-
Lab Data: Labs Reviewed by me
Old Records: Reviewed
Impression/Plan
-
IMPRESSION:
PLAN:
# Left neck abscess with involvement of the mediastinum
# Recent mid esophageal perforation
-Status post washout with placement of drains which have subsequently been removed
-No discharge summary sent from [place] so unclear what other events transpired
-Discharge med rec available
-Continue Unasyn to be completed on 05/11
Metastatic esophageal adenocarcinoma status post chemotherapy complicated by recurrent esophageal stricture with dilatation/esophageal stenting
History of PEG tube
-Resume tube feeds
-Nutrition consult
History of marijuana use
Full code
DVT prophylaxis�Lovenox
Tube feeds
--- NOTE | 2024-05-06 21:28 | VATNOTE ---
Shy LORENZO, informed this VAT RN of pt transfer and has a picc line. Assessed, brisk blood return noted in both lumens. Dsg. just changed friday05/03/24 @ [facility]. Recommended portable CXR for picc tip placement this jenni prior to use. VAT to follow.
[2024-05-06 23:07] VITALS: BP 109/54
[2024-05-06 23:33] VITALS: BMI 21.8
[2024-05-07] MEDS: UNASYN IV ×4 (00:20→18:18)
[2024-05-07] MEDS: ROXICODONE ORAL SOLUTION 5 MG TUBE ×3 (00:20→09:31)
--- NOTE | 2024-05-07 00:23 | VATNOTE ---
PT ADMITTED WITH 5FR DL R PICC A TRANSFER FROM [facility], WHERE PICC WAS INSERTED. ADMISSION CXR REPORTS PICC TIP TO BE RA. WILL CONSULT WITH PROVIDERS IN AM IF PICC PLACEMENT SHOULD BE REDIRECTED FOR SVC TIP. PCN AWARE OF PLAN OF CARE. VAT TO FOLLOW.
[2024-05-07] MEDS: DURAGESIC 25 MCG/HR PATCH 1 PATCH TRANSDERM (00:25)
[2024-05-07] MEDS: NEURONTIN 300 MG TUBE (02:28)
[2024-05-07 03:42] LABS: Glucose - Point of Care 85 mg/dl (70-99)
[2024-05-07 05:06] LABS: % Basophils 0.3 % (0-2); % Immature Granulocytes 1.7 % (0-0.5); % Lymphocytes 22.6 % (20.5-51.1); % Monocytes 4.8 % (1.7-9.3); % Neutrophils 69.6 % (42.2-75.2); Absolute Eosinophils 0.1 10^3/uL (0-0.7); Absolute Immature Granulocytes 0.2 10^3/uL (0-0.05); Absolute Lymphocytes 2.6 10^3/uL (1.2-3.4); Absolute Monocytes 0.6 10^3/uL (0.1-0.6); Hematocrit 25.9 % (39.0-52.0); Hemoglobin 8.8 g/dL (13.0-18.0); Mean Corpuscular Hgb 31.3 pg (27.0-31.0); Mean Corpuscular Volume 92.2 fL (80.0-94.0); Mean Platelet Volume 9.6 fL (7.4-10.4); Nucleated Red Blood Cells % 0 % (-); Platelet Count 268 10^3/uL (130-400); Red Blood Cell Count 2.81 10^6/uL (4.70-6.10); Red Cell Dist. Width 17.5 % (11.5-14.5); White Blood Cell Count 11.5 10^3/uL (4.8-10.8)
[2024-05-07 05:37] LABS: ALT (SGPT) 21 U/L (0-50); AST (SGOT) 23 U/L (17-59); Albumin 2.3 g/dl (3.5-5.0); Alkaline Phosphatase 101 U/L (38-126); Blood Urea Nitrogen 15 mg/dl (9-20); Calcium 7.7 mg/dl (8.4-10.2); Carbon Dioxide 27 mmol/L (22-30); Chloride 96 mmol/L (98-107); Estimated Creatinine Clearance 93 ml/min; Glucose 86 mg/dl (70-99); Sodium 128 mmol/L (135-145); Total Bilirubin 0.4 mg/dl (0.2-1.3); Total Protein 5.1 g/dl (6.3-8.2); eGFR > 60.00
[2024-05-07 07:13] VITALS: BP 118/67
[2024-05-07] MEDS: LOPRESSOR 12.5 MG TUBE ×2 (09:22→21:31)
[2024-05-07] MEDS: SOLU-CORTEF 25 MG IV (09:23)
[2024-05-07] MEDS: PREVACID 30 MG TUBE (09:23)
--- NOTE | 2024-05-07 09:34 | W.PN.HOSP.TC ---
Addendum entered and electronically signed by Greg Moraes MD 05/07/24 15:37:
Left chest tube remains in place at the site of mediastinal abscess.
Discussed with CT surgery PA at [facility].
Plan is to keep chest tube in place with a imaging in 2 to 3 weeks for further determination.
Original Note:
Today's Communication/Plan
-
See plan
Assessment / Plan
Assessment / Plan
Impression
Metastatic esophageal carcinoma.
Left neck abscess with extension to the mediastinum status post wash out at [facility]
Esophageal stent in place.
Dysphagia.
Left traumatic vocal cord paralysis
Status post jejunostomy exchange from PEG tube
Chronic normocytic anemia
Chronic steroid therapy
Malignant pain requiring narcotics
Hyponatremia
Severe protein calorie malnutrition with BMI of 21
Plan
Status post left neck abscess with extension to the mediastinum, status post washout by CT surgery at [facility]
Status post left chest tube removed on 04/30
Antibiotics narrowed to IV Unasyn via PICC line through 05/11/2024
Follow-up temperature curve and WBC
Dysphagia
PEG tube removed
Status post jejunostomy
Nutrition consult.
Resume tube feeding as recommended
Left traumatic vocal cord paralysis.
Follow-up with ENT in 3 months
Malignant pain/palliative care.
Continue fentanyl patch 25 mcg every 72 hours
Continue gabapentin
Continue oxycodone 10 mg every 4 hours as needed
Chronic normocytic anemia.
Check iron level and B12
Follow hemoglobin
Hyponatremia
Check urine awesome and urine sodium
Resume tube feeds with water flushes
Follow BMP
Chronic steroid therapy.
Currently on hydrocortisone 25 mg IV daily. Transition to enteral route at the same dose.
Continue PPI
Discharge planning
Physical therapy assessment.
Palliative care consult
Anticipated Discharge: > 48 hours
Subjective/Interval History
-
Date of Service: May 07, 2024
Objective Data
-
Labs:
Laboratory Results
05/07/24
04:50
WBC 11.5 H
Hgb 8.8 L
Hct 25.9 L
Plt Count 268
Sodium 128 L
Potassium 4.0
Chloride 96 L
Carbon Dioxide 27
BUN 15
Creatinine 0.4 L
Glucose 86
Calcium 7.7 L
Total Bilirubin 0.4
AST 23
ALT 21
Alkaline Phosphatase 101
Vital Signs:
Vital Signs
Temp Pulse Resp BP Pulse Ox
98.1 F 85 18 118/67 95
05/07/24 07:13 05/07/24 07:13 05/07/24 07:13 05/07/24 07:13 05/07/24 07:13
Physical Exam
-
General: Well Developed and No Apparent Distress
HEENT: Normocephalic, Atraumatic and Moist Mucous Membranes
Respiratory: Clear to Auscultation
Cardiac: Regular Rhythm and S1/S2; Negative Murmur, Rub or Gallop
GI: Soft, Nontender, Nondistended and Normal Bowel Sounds; Negative Organomegaly
Rectal: Deferred by Provider
Musculoskeletal: No Clubbing, No Cyanosis and No Edema
Skin: Negative Rash
Neuro: Nonfocal/Grossly Intact
[2024-05-07 10:27] LABS: Iron 45 ug/dl (49-181)
[2024-05-07 10:36] LABS: Percent Saturation 25 % (20-50); Total Iron Binding Capacity 180 ug/dl (261-462)
--- NOTE | 2024-05-07 11:20 | WOUNDNOTE ---
L CHEST (LATERAL NEAR AXILLA)
--- NOTE | 2024-05-07 11:31 | WOUNDNOTE ---
[facility] RN note: Patient admitted with transfer back from [facility]. Hx of esophageal perforation. Palliative care on consult.
See H&P for complete history.
PMH: L neck washout, LVATS and washout 04/26/24, 04/30 chest tube removed, metastatic esophageal cancer, s/p chemotherapy, recurrent esophageal stricture with prior dilation and stenting.
Wound Location and type/assessment: Patient admitted with: L neck approximated stapled incision, no drainage, [employer]. L upper lateral flank near axilla almost healed surgical site vs old CT tube site, scant ss drainage. L abdominal dermal ulcer
suspect from previous adhesive skin tear vs stage 2 pressure injury from chest tube. L knee small scabbed abrasion, L buttocks large deep dermal stage 2 pressure injury, R buttocks dark red fragile skin areas suspect will be a stage 2 pressure
injury. Heels blanchable red. L side of back with couple of small skin tears. Mid spine with healing stage 2 pressure injury and stage 1 pressure injury. Dressing D+I L lateral lower chest tube site (chest tube to straight drainage).
Appetite: NPO. J tube. Peg tube to straight drainage.
Pressure redistribution devices in place: [employer] Accumax.
Plan: L abdominal, buttocks, L axilla area and back dressings changed. Static air overlay applied with help from [facility]. Heels off bed with pillow. Patient turned to L semi side lying position with help from [facility]. Air chair cushion given.
Updated hospitalist including letting Dr. Moraes know that this tag writer does not manage chest tubes; Dr. Moraes approved local wound care, air overlay or air mattress orders. Discussed with [facility].
Updated care plan and will follow as needed.
Note to case management of equipment requested for discharge: Air mattress recommended.
Recommend follow up at wound care center upon discharge.
[2024-05-07 11:58] LABS: Vitamin B12 705 pg/ml (239-931)
--- NOTE | 2024-05-07 12:29 | CM ---
Reviewed the chart notes and spoke with the patient at the bedside. Patient with J-tube and Peg tube. The patient resides with his spouse in a two story home with three steps to enter. The patient reports no DME/VN/SNF in the past. The patient
confirmed his pharmacy of choice is [facility]. CM continues to be available to patient/family and is monitoring medical plan for needs at discharge.
Plan: Discharge plans will depend on the patient's progress.
--- NOTE | 2024-05-07 12:39 | W.CON.PAL ---
Consultation
-
Date/Time Consultation Requested: 05/07/24
Date/Time Consultation Performed: 05/07/24
Requesting Provider: Dr. Moraes
Performing Provider: Keiko CA
Reason for Consult: Goals of Care Discussion and Symptom & Pain Management
Primary Diagnosis: metastatic esohageal cancer
Consult Requested By: Patient's Physician
Reason for Admission
Illness Course/HPI
78 year old M with PMH of metastatic esophageal cancer s/p definitive chemo. Most recent scans have shown no evidence of disease. Complicated by recurrent esophageal strictures for which he follows GI. Underwent multiple dilations. Underwent
esophageal stent placement March 2024 which was complicated by esophageal perforation. CT at that time was stable and was discharged the next day. He returned to the ED 04/[address] at that time showing abscess in L mediastinum extending into
the L neck to C5. Transferred to [place].
While at [facility] he underwent L neck washout and drain placement. Drains have since been removed. He remains on unasyn until 05/11. Peg tube was converted to J tube due to aspiration. Transferred back to for dispo. Awaiting PT/OT.
Pain is an issue - continues on fentanyl 25mcg, oxycodone liquid just increased to 10mg prn today. Follows with [facility] oncology. Not currently on treatment, on surveillance only due to no evidence of disease on scans.
Functional Status
prior to hospitalization was indepdent with ADLs, iADLs. Has not been OOB, awaiting PT.
lives with spouse Annei. Annie has 2 children of her own, no children together. No DME.
Pain & Symptom Assessment
[place] Symptom Scale 0=none, 10=worst
Pain: 7
Nausea: 0
Appetite: 0
Shortness of Breath: 0
Objective Data
-
Objective Data:
Vital Signs
Temp Pulse Resp BP Pulse Ox
98.1 F 85 18 118/67 95
05/07/24 07:13 05/07/24 07:13 05/07/24 07:13 05/07/24 07:13 05/07/24 07:13
Laboratory Results
05/07/24 04:50
05/07/24 04:50
Total Protein 5.1 g/dl (6.3-8.2) L 05/07/24 04:50
Albumin 2.3 g/dl (3.5-5.0) L 05/07/24 04:50
Palliative Performance Scale
Palliative Performance Scale:
PPS Level Ambulation Activity & Evidence of Disease Self Care Intake Conscious Level
100% Full Normal Activity & Work; Full Intake Full
No Evidence of Disease
90% Full Normal Activity & Work; Full Normal Full
Some Evidence of Disease
80% Full Normal Activity with Effort Full Normal or Full
Some Evidence of Disease Reduced
70% Reduced Unable Normal Job/Work Full Normal or Full
Significant Disease Reduced
60% Reduced Unable Hobby/Housework Occasional Normal or Full or Confusion
Significant Disease Assistance Reduced
50% Mainly Sit/Lie Unable to do Any Work Considerable Normal or Full or Confusion
Extensive Disease Assistance Req'd Reduced
40% Mainly in Bed Unable to do Most Activity Mainly Assistance Normal or Full or Drowsy;
Extensive Disease Reduced +/- Confusion
30% Totally Bed Unable to do Any Activity Total Care Normal or Full or Drowsy;
Bound Extensive Disease Reduced +/- Confusion
20% Totally Bed Bound Unable to do Any Activity Total Care Minimal to Full or Drowsy;
Extensive Disease Sips +/- Confusion
10% Totally Bed Bound Unable to do Any Activity Total Care Mouth Care Drowsy or Coma;
Extensive Disease Only +/- Confusion
0%
PPS Score Level:
Palliative Performance Score Response
Palliative Performance Score Response: 60%
Physical Exam
-
General: No Apparent Distress and Appears Chronically Ill
HEENT: Other (L neck with grayson)
Respiratory: Clear to Auscultation
Cardiac: Regular Rhythm
Peripheral Vascular: No Edema
GI: Soft and Nondistended
Skin: Warm
Neuro: AO x 3
Psych: Calm
Assessment / Plan
-
Assessment/Plan:
78 year old M with metastatic esophageal cancer s/p chemo, currently with no evidence of disease. Complicated by recurrent esophageal strictures s/p multiple dilations. Recent stent placement c/b perforation/abscess s/p washout, on ABX.
- currently on surveillance for his cancer. All of his issues are complications from his cancer. Not interested in hospice.
-tolerating tube feeds
- continue fentanyl 25mcg, oxycodone increased to 10mg prn today and has not used increased dose yet. Pain is likely acute on chronic from recent washout. Gabapentin nightly.
- follows with [facility]. Would be a good candidate for outpatient palliative follow up if interested.
-Await PT OT recs for dispo planning but has not been OOB, would assume he would benefit from SNF stay
Care Reviewed
Data Reviewed
Chest X ray: Image Reviewed
Radiology procedure: Image Reviewed
Medical Tests: I reviewed
Reviewed with: Patient and Physician
[2024-05-07 14:08] VITALS: BMI 21.8
[2024-05-07 15:55] VITALS: BP 147/70
[2024-05-07] MEDS: ROXICODONE ORAL SOLUTION 10 MG TUBE ×2 (15:57→21:36)
[2024-05-07] MEDS: LOVENOX 40 MG SC (18:19)
[2024-05-07] MEDS: NEURONTIN 600 MG PO (21:31)
[2024-05-07 23:37] VITALS: BP 96/59
[2024-05-08] MEDS: UNASYN IV ×5 (00:17→23:32)
[2024-05-08 01:01] LABS: Osmolality Urine 458 mOsm/kg (300-900)
[2024-05-08 01:08] LABS: Urine Sodium 138 mmol/L (30-90)
[2024-05-08 03:59] VITALS: BP 105/66
[2024-05-08 05:35] LABS: % Basophils 0.2 % (0-2); % Eosinophils 0.7 % (0-6); % Immature Granulocytes 1.4 % (0-0.5); % Lymphocytes 19.6 % (20.5-51.1); % Monocytes 4.5 % (1.7-9.3); % Neutrophils 73.6 % (42.2-75.2); Absolute Eosinophils 0.1 10^3/uL (0-0.7); Absolute Immature Granulocytes 0.2 10^3/uL (0-0.05); Absolute Lymphocytes 2.1 10^3/uL (1.2-3.4); Absolute Monocytes 0.5 10^3/uL (0.1-0.6); Absolute Neutrophils 7.9 10^3/uL (1.4-6.5); Hematocrit 25.6 % (39.0-52.0); Hemoglobin 8.4 g/dL (13.0-18.0); Mean Corp Hgb Conc. 32.8 g/dL (33.0-37.0); Mean Corpuscular Hgb 30.1 pg (27.0-31.0); Mean Corpuscular Volume 91.8 fL (80.0-94.0); Mean Platelet Volume 9.5 fL (7.4-10.4); Nucleated Red Blood Cells % 0 % (-); Platelet Count 302 10^3/uL (130-400); Red Blood Cell Count 2.79 10^6/uL (4.70-6.10); Red Cell Dist. Width 17.2 % (11.5-14.5); White Blood Cell Count 10.7 10^3/uL (4.8-10.8)
[2024-05-08] MEDS: ROXICODONE ORAL SOLUTION 10 MG TUBE ×3 (05:43→16:26)
[2024-05-08 05:55] LABS: Blood Urea Nitrogen 12 mg/dl (9-20); Calcium 7.2 mg/dl (8.4-10.2); Carbon Dioxide 29 mmol/L (22-30); Chloride 96 mmol/L (98-107); Estimated Creatinine Clearance 93 ml/min; Glucose 112 mg/dl (70-99); Potassium 3.8 mmol/L (3.5-5.1); Sodium 129 mmol/L (135-145); eGFR > 60.00
--- NOTE | 2024-05-08 06:45 | PTCARENOTE ---
Pt. tolerated tube feeds overnight with no residual (titrating rate up, ended shift at 35 ml/hr). Old G tube to gravity drainage bag; output 275 ml for the shift.
[2024-05-08 08:05] VITALS: BP 109/59
[2024-05-08] MEDS: CORTEF 25 MG TUBE (08:58)
[2024-05-08] MEDS: LOPRESSOR 12.5 MG TUBE ×2 (08:59→21:05)
[2024-05-08] MEDS: SENNA SYRUP 17.6 MG TUBE (08:59)
[2024-05-08] MEDS: PREVACID 30 MG TUBE (08:59)
--- NOTE | 2024-05-08 09:13 | W.PN.HOSP.TC ---
Addendum entered and electronically signed by Patricia Talley MD 05/08/24 13:05:
Hyponatremia
-decrease FWF - repeat tomorrow
Original Note:
Today's Communication/Plan
-
dispo planning
Assessment / Plan
Assessment / Plan
Impression
Metastatic esophageal carcinoma.
Left neck abscess with extension to the mediastinum status post wash out at [facility] on 04/26/[address]
Dysphagia.
Left traumatic vocal cord paralysis
Status post jejunostomy exchange from PEG tube
Chronic normocytic anemia
Chronic steroid therapy
Malignant pain requiring narcotics
Hyponatremia
Severe protein calorie malnutrition with BMI of 21
Plan
Status post left neck abscess with extension to the mediastinum, status post washout by CT surgery at [facility] 04/26/24
Status post left chest tube removed on 04/30
Antibiotics narrowed to IV Unasyn via PICC line through 05/11/2024
Follow-up temperature curve and WBC
Plan is to keep chest tube in place with a imaging in 2 to 3 weeks for further determination.
Dysphagia
PEG tube removed
Status post jejunostomy
Nutrition consult.
Resume tube feeding as recommended
Left traumatic vocal cord paralysis.
Follow-up with ENT in 3 months
Malignant pain/palliative care.
Continue fentanyl patch 25 mcg every 72 hours
Continue gabapentin
Continue oxycodone 10 mg every 4 hours as needed
Chronic normocytic anemia.
Check iron level and B12
Follow hemoglobin
Hyponatremia
Check urine awesome and urine sodium
Resume tube feeds with water flushes
Follow BMP
Chronic steroid therapy.
Currently on hydrocortisone 25 mg IV daily. Transition to enteral route at the same dose.
Continue PPI
Discharge planning
Physical therapy assessment.
Palliative care consult
Anticipated Discharge: 24 - 48 hours
Subjective/Interval History
-
Date of Service: May 08, 2024
patient is resting
states pain is controlled with medications
Objective Data
-
Labs:
Laboratory Results
05/08/24
05:16
WBC 10.7
Hgb 8.4 L
Hct 25.6 L
Plt Count 302
Sodium 129 L
Potassium 3.8
Chloride 96 L
Carbon Dioxide 29
BUN 12
Creatinine 0.4 L
Glucose 112 H
Calcium 7.2 L
Vital Signs:
Vital Signs
Temp Pulse Resp BP Pulse Ox
98.1 F 75 16 109/59 96
05/08/24 08:05 05/08/24 08:59 05/08/24 08:05 05/08/24 08:59 05/08/24 08:05
I&O
05/07/24 05/08/24 05/09/24
06:59 06:59 06:59
Intake Total 970 / 970
Output Total 2525 / 2525
Balance -1555 / -1555
Review of Systems
-
History Source: Patient
All other systems: Reviewed and negative
Physical Exam
-
General: No Apparent Distress
HEENT: Normocephalic, Atraumatic and Moist Mucous Membranes
Respiratory: Clear to Auscultation and Chest Tubes (grayson in place at incision site )
Cardiac: Regular Rhythm and S1/S2; Negative Murmur, Rub or Gallop
GI: Soft, Nontender, Nondistended and Normal Bowel Sounds; Negative Organomegaly
Rectal: Deferred by Provider
Musculoskeletal: No Clubbing, No Cyanosis and No Edema
Skin: Negative Rash
Neuro: Nonfocal/Grossly Intact
Psych: Calm
Data Reviewed
-
Diagnostic Radiology: Report Reviewed by me
Labs: Labs Reviewed by me
--- NOTE | 2024-05-08 14:19 | CM ---
Reviewed the chart notes and spoke with the patient's spouse at the bedside. Spouse provided names of SNFs for placement. Referrals sent with [facility]. CM continues to be available to patient/family and is monitoring medical plan for needs at
discharge.
Plan: Discharge to SNF/rehab once medically stable, bed secured and precert obtained.
[2024-05-08] MEDS: LOVENOX 40 MG SC (16:26)
[2024-05-08 16:28] VITALS: BP 103/59
[2024-05-08] MEDS: NEURONTIN 600 MG PO (21:06)
--- NOTE | 2024-05-08 21:40 | PTCARENOTE ---
Fentanyl patch located on STEVEN.
[2024-05-08 23:32] VITALS: BP 108/61
[2024-05-09] MEDS: UNASYN IV ×4 (05:15→23:35)
[2024-05-09] MEDS: ROXICODONE ORAL SOLUTION 10 MG TUBE ×4 (05:18→23:25)
[2024-05-09 06:13] LABS: Hematocrit 28.4 % (39.0-52.0); Hemoglobin 9.4 g/dL (13.0-18.0); Mean Corp Hgb Conc. 33.1 g/dL (33.0-37.0); Mean Corpuscular Hgb 30.8 pg (27.0-31.0); Mean Corpuscular Volume 93.1 fL (80.0-94.0); Mean Platelet Volume 9.2 fL (7.4-10.4); Platelet Count 355 10^3/uL (130-400); Red Blood Cell Count 3.05 10^6/uL (4.70-6.10); Red Cell Dist. Width 17.4 % (11.5-14.5); White Blood Cell Count 10.7 10^3/uL (4.8-10.8)
[2024-05-09 06:39] LABS: Blood Urea Nitrogen 10 mg/dl (9-20); Calcium 7.8 mg/dl (8.4-10.2); Carbon Dioxide 25 mmol/L (22-30); Chloride 97 mmol/L (98-107); Estimated Creatinine Clearance 93 ml/min; Glucose 100 mg/dl (70-99); Sodium 129 mmol/L (135-145); eGFR > 60.00
--- NOTE | 2024-05-09 06:51 | PTCARENOTE ---
Pt's tube feed leaked. Pt bathed and linens changed. Chest tube dressing changed. #21 CC replaced. Call winsome w/in reach.
[2024-05-09 07:20] VITALS: BP 92/56
--- NOTE | 2024-05-09 08:45 | W.PN.HOSP.TC ---
Today's Communication/Plan
-
dispo planning
Assessment / Plan
Assessment / Plan
Impression
Metastatic esophageal carcinoma.
Left neck abscess with extension to the mediastinum status post wash out at [facility] on 04/26/[address]
Dysphagia.
Left traumatic vocal cord paralysis
Status post jejunostomy exchange from PEG tube
Chronic normocytic anemia
Chronic steroid therapy
Malignant pain requiring narcotics
Hyponatremia
Severe protein calorie malnutrition with BMI of 21
Plan
Status post left neck abscess with extension to the mediastinum, status post washout by CT surgery at [facility] 04/26/24
Status post left chest tube removed on 04/30
Antibiotics narrowed to IV Unasyn via PICC line through 05/11/2024
Follow-up temperature curve and WBC
Plan is to keep chest tube in place with a imaging in 2 to 3 weeks for further determination.
Dysphagia
PEG tube removed; Status post jejunostomy
Nutrition consult.
Resume tube feeding as recommended
Left traumatic vocal cord paralysis.
Follow-up with ENT in 3 months
Malignant pain/palliative care.
Continue fentanyl patch 25 mcg every 72 hours
Continue gabapentin
Continue oxycodone 10 mg every 4 hours as needed
Chronic normocytic anemia.
Check iron level and B12
Follow hemoglobin
Hyponatremia
Check urine awesome and urine sodium
Resume tube feeds with water flushes - decreased FWF
Follow BMP
Chronic steroid therapy.
Currently on hydrocortisone 25 mg IV daily. Transition to enteral route at the same dose.
Continue PPI
Discharge planning
Physical therapy assessment.
Palliative care consult
Anticipated Discharge: 24 - 48 hours
Subjective/Interval History
-
Date of Service: May 09, 2024
more alert today, states he is feeling okay
Objective Data
-
Labs:
Laboratory Results
05/09/24
05:49
WBC 10.7
Hgb 9.4 L
Hct 28.4 L
Plt Count 355
Sodium 129 L
Potassium 4.0
Chloride 97 L
Carbon Dioxide 25
BUN 10
Creatinine 0.4 L
Glucose 100 H
Calcium 7.8 L
Vital Signs:
Vital Signs
Temp Pulse Resp BP Pulse Ox
97.6 F 77 18 92/56 96
05/09/24 07:20 05/09/24 07:20 05/09/24 07:20 05/09/24 07:20 05/09/24 07:20
I&O
05/08/24 05/09/24 05/10/24
06:59 06:59 06:59
Intake Total 970 / 970 240 / 240
Output Total 2525 / 2525 695 / 695
Balance -1555 / -1555 -455 / -455
Review of Systems
-
History Source: Patient
All other systems: Reviewed and negative
Physical Exam
-
General: No Apparent Distress
HEENT: Normocephalic, Atraumatic and Moist Mucous Membranes
Respiratory: Clear to Auscultation and Chest Tubes (grayson in place at incision site )
Cardiac: Regular Rhythm and S1/S2; Negative Murmur, Rub or Gallop
GI: Soft, Nontender, Nondistended and Normal Bowel Sounds; Negative Organomegaly
Rectal: Deferred by Provider
Musculoskeletal: No Clubbing, No Cyanosis and No Edema
Skin: Negative Rash
Neuro: Nonfocal/Grossly Intact
Psych: Calm
Data Reviewed
-
Diagnostic Radiology: Report Reviewed by me
Labs: Labs Reviewed by me
[2024-05-09] MEDS: CORTEF 25 MG TUBE (08:49)
[2024-05-09] MEDS: LOPRESSOR TUBE (08:51)
[2024-05-09] MEDS: PREVACID 30 MG TUBE (08:52)
[2024-05-09] MEDS: NEURONTIN 300 MG TUBE (08:53)
[2024-05-09] MEDS: TYLENOL 1000 MG PO (14:23)
[2024-05-09 16:02] VITALS: BP 113/56
[2024-05-09] MEDS: LOVENOX 40 MG SC (17:10)
[2024-05-09] MEDS: LOPRESSOR 12.5 MG TUBE (19:24)
[2024-05-09] MEDS: NEURONTIN 600 MG PO (22:55)
[2024-05-09] MEDS: DURAGESIC 25 MCG/HR PATCH 1 PATCH TRANSDERM (23:10)
[2024-05-09 23:27] VITALS: BP 120/63
[2024-05-10] MEDS: UNASYN IV ×4 (05:39→23:08)
[2024-05-10 06:23] LABS: Blood Urea Nitrogen 12 mg/dl (9-20); Calcium 7.5 mg/dl (8.4-10.2); Carbon Dioxide 25 mmol/L (22-30); Chloride 99 mmol/L (98-107); Estimated Creatinine Clearance 93 ml/min; Glucose 108 mg/dl (70-99); Potassium 4.1 mmol/L (3.5-5.1); Sodium 128 mmol/L (135-145); eGFR > 60.00
[2024-05-10 07:00] VITALS: BP 123/64
[2024-05-10] MEDS: ROXICODONE ORAL SOLUTION 10 MG TUBE ×3 (08:26→23:10)
[2024-05-10] MEDS: CORTEF 25 MG TUBE (08:27)
[2024-05-10] MEDS: TYLENOL 1000 MG PO (08:27)
[2024-05-10] MEDS: LOPRESSOR 12.5 MG TUBE ×2 (08:27→21:09)
[2024-05-10] MEDS: PREVACID 30 MG TUBE (08:27)
--- NOTE | 2024-05-10 10:53 | PTCARENOTE ---
Pt refused to work w/ PT/OT. Will not try to just sit on edge of bed. Pt says he is unable to do it. Pt is doing ROM exercises in bed. Pt refusing turns.
--- NOTE | 2024-05-10 12:30 | W.PN.PAL2 ---
Today's Communication
-
PC follow up meeting
met with patient, no family at bedside.
discussed goals of care, patient is interested in meeting with hospice. he is not sure he can tolerate rehab.
if he does not do hospice, then palliative care outpatient follow up planed - provided our information as well
discussed pain - he reports pain levels around 7/10 with current medication. taking oxycodone 10mg on average 4 x per day. also on fentanyl patch + gabapentin.
Recommend increasing fentanyl patch to 37.5mcg, continue other medications
Assessment / Plan
-
Assessment/Plan:
hospice referral placed
if does not do hospice, will plan for outpatient palliative care follow up
recommend increasing fentanyl patch to 37.5 mcg
total floor time 35 mins
Reason for Admission
Illness Course/HPI
78 year old M with PMH of metastatic esophageal cancer s/p definitive chemo. Most recent scans have shown no evidence of disease. Complicated by recurrent esophageal strictures for which he follows GI. Underwent multiple dilations. Underwent
esophageal stent placement March 2024 which was complicated by esophageal perforation. CT at that time was stable and was discharged the next day. He returned to the ED 04/[address] at that time showing abscess in L mediastinum extending into
the L neck to C5. Transferred to [place].
While at [place] he underwent L neck washout and drain placement. Drains have since been removed. He remains on unasyn until 05/11. Peg tube was converted to J tube due to aspiration. Transferred back to for dispo. Awaiting PT/OT.
Pain is an issue - continues on fentanyl 25mcg, oxycodone liquid just increased to 10mg prn today. Follows with [place] oncology. Not currently on treatment, on surveillance only due to no evidence of disease on scans.
Functional Status
prior to hospitalization was indepdent with ADLs, iADLs. Has not been OOB, awaiting PT.
lives with spouse Annie. Annie has 2 children of her own, no children together. No DME.
Goals of Care Discussion
-
Patient able to participate in discussion at time of visit: Yes
Patient's Information Preferences: Fully Involved/Able to Participate
Patient Goals
patient is interested in meeting with hospice care
Pain & Symptom Assessment
Wilmot Symptom Scale 0=none, 10=worst
Pain: 7
Objective Data
-
Objective Data:
Vital Signs
Temp Pulse Resp BP Pulse Ox
98.6 F 68 16 120/63 96
05/09/24 23:27 05/09/24 23:27 05/09/24 23:27 05/09/24 23:27 05/09/24 23:27
Laboratory Results
05/09/24 05:49
05/10/24 05:44
Total Protein 5.1 g/dl (6.3-8.2) L 05/07/24 04:50
Albumin 2.3 g/dl (3.5-5.0) L 05/07/24 04:50
Palliative Performance Scale
Palliative Performance Scale:
PPS Level Ambulation Activity & Evidence of Disease Self Care Intake Conscious Level
100% Full Normal Activity & Work; Full Intake Full
No Evidence of Disease
90% Full Normal Activity & Work; Full Normal Full
Some Evidence of Disease
80% Full Normal Activity with Effort Full Normal or Full
Some Evidence of Disease Reduced
70% Reduced Unable Normal Job/Work Full Normal or Full
Significant Disease Reduced
60% Reduced Unable Hobby/Housework Occasional Normal or Full or Confusion
Significant Disease Assistance Reduced
50% Mainly Sit/Lie Unable to do Any Work Considerable Normal or Full or Confusion
Extensive Disease Assistance Req'd Reduced
40% Mainly in Bed Unable to do Most Activity Mainly Assistance Normal or Full or Drowsy;
Extensive Disease Reduced +/- Confusion
30% Totally Bed Unable to do Any Activity Total Care Normal or Full or Drowsy;
Bound Extensive Disease Reduced +/- Confusion
20% Totally Bed Bound Unable to do Any Activity Total Care Minimal to Full or Drowsy;
Extensive Disease Sips +/- Confusion
10% Totally Bed Bound Unable to do Any Activity Total Care Mouth Care Drowsy or Coma;
Extensive Disease Only +/- Confusion
0%
PPS Score Level:
Palliative Performance Score Response
Palliative Performance Score Response: 40%
Physical Exam
-
General: Comfortable, Conversant and Appears Chronically Ill
Neuro: Awake and Alert
Psych: Calm
--- NOTE | 2024-05-10 12:55 | W.PN.HOSP.TC ---
Today's Communication/Plan
-
Complains of severe pain predicting initiation of physical therapy evaluation.
Increase fentanyl patch to 37 mcg every 72 hours
Continue Neurontin
Continue oxycodone.
Discussion with patient with the reasoning for physical therapy evaluation and hopeful rehab placement as patient esophageal carcinoma had been in remission.
In addition patient also inquiring about hospice consultation.
Assessment / Plan
Assessment / Plan
Impression
Metastatic esophageal carcinoma.
Left neck abscess with extension to the mediastinum status post wash out at [facility] on 04/26/[address]
Dysphagia.
Left traumatic vocal cord paralysis
Status post jejunostomy exchange from PEG tube
Chronic normocytic anemia
Chronic steroid therapy
Malignant pain requiring narcotics
Hyponatremia
Severe protein calorie malnutrition with BMI of 21
Plan
Status post left neck abscess with extension to the mediastinum, status post washout by CT surgery at [facility] 04/26/24
Status post left chest tube removed on 04/30
Antibiotics narrowed to IV Unasyn via PICC line through 05/11/2024
Follow-up temperature curve and WBC
Plan is to keep chest tube in place with a imaging in 2 to 3 weeks for further determination.
Dysphagia
PEG tube removed; Status post jejunostomy
Nutrition consult.
Resume tube feeding as recommended
Left traumatic vocal cord paralysis.
Follow-up with ENT in 3 months
Malignant pain/palliative care.
Complains of severe pain predicting physical therapy evaluation.
Increase fentanyl patch to 37 mcg every 72 hours
Continue gabapentin
Continue oxycodone 10 mg every 4 hours as needed
Chronic normocytic anemia.
Check iron level and B12
Follow hemoglobin
Hyponatremia
Urine sodium consistent with increased ADH state/SIADH likely due to pain
Resume tube feeds with water flushes - decreased FWF
Follow BMP
Chronic steroid therapy.
Currently on hydrocortisone 25 mg IV daily. Transition to enteral route at the same dose.
Continue PPI
Discharge planning
Physical therapy assessment.
Palliative care consult
Anticipated Discharge: 24 - 48 hours
Subjective/Interval History
-
Date of Service: May 10, 2024
Objective Data
-
Labs:
Laboratory Results
05/10/24
05:44
Sodium 128 L
Potassium 4.1
Chloride 99
Carbon Dioxide 25
BUN 12
Creatinine 0.4 L
Glucose 108 H
Calcium 7.5 L
Vital Signs:
Vital Signs
Temp Pulse Resp BP Pulse Ox
98.6 F 68 16 120/63 96
05/09/24 23:27 05/09/24 23:27 05/09/24 23:27 05/09/24 23:27 05/09/24 23:27
I&O
05/09/24 05/10/24 05/11/24
06:59 06:59 06:59
Intake Total 240 / 240 1200 / 1200
Output Total 695 / 695 1635 / 1635
Balance -455 / -455 -435 / -435
Physical Exam
-
General: No Apparent Distress
HEENT: Normocephalic, Atraumatic and Moist Mucous Membranes
Respiratory: Clear to Auscultation and Chest Tubes (grayson in place at incision site )
Cardiac: Regular Rhythm and S1/S2; Negative Murmur, Rub or Gallop
GI: Soft, Nontender, Nondistended and Normal Bowel Sounds; Negative Organomegaly
Rectal: Deferred by Provider
Musculoskeletal: No Clubbing, No Cyanosis and No Edema
Skin: Negative Rash
Neuro: Nonfocal/Grossly Intact
Psych: Calm
--- NOTE | 2024-05-10 14:09 | CM ---
Addendum entered by Jaylin Sanford RN 05/10/24 14:28:
Seen by wound care nurse. Jevity tube feeds.
Original Note:
Patient with Hx Metastatic esophageal carcinoma, left neck abscess with extension to mediastinum s/p washout at [facility] 04/26, laparoscopic jejunostomy tube placement. Room air. Chest tube. Receiving IV Abx via PICC, Duragesic Patch, Roxicodone prn.
Palliative care consult noted. Patient continuing to decline PT/OT.
Prior SNF referrals 05/08 reviewed in [facility]; accepted by [facility], declined by [facility] due to no available bed, no response from [facility].
CM Consult: Hospice
Met with patient;
explained hospice philosophy & benefits.
Patient would like to speak with the Hospice nurse.
Patient says his SO Annie is also interested in Hospice.
Patient does not think he will be able to return home at discharge.
Patient did not want to discuss SNF with hospice at this time.
Referral to [facility]; she will meet with the patient.
Plan follow up after seen by Hospice.
--- NOTE | 2024-05-10 14:30 | HOSPNOTE ---
Went to see patient to discuss hospice and the patient is sleeping, I placed a call to [facility] and had to leave a message. Will follow up once I speak with patient and spouse and see what the discharge plan is. More information to follow.
[2024-05-10] MEDS: DURAGESIC 12 MCG/HR PATCH 1 PATCH TRANSDERM (14:32)
[2024-05-10 15:07] VITALS: BP 113/64
[2024-05-10] MEDS: LOVENOX 40 MG SC (17:41)
[2024-05-10] MEDS: NEURONTIN 600 MG PO (21:10)
[2024-05-10 23:10] VITALS: BP 116/63
[2024-05-11] MEDS: ROXICODONE ORAL SOLUTION 10 MG TUBE ×3 (04:22→20:23)
[2024-05-11] MEDS: UNASYN IV ×3 (05:11→16:55)
[2024-05-11] MEDS: PREVACID 30 MG TUBE (07:23)
[2024-05-11] MEDS: CORTEF 25 MG TUBE (07:23)
[2024-05-11] MEDS: TYLENOL 1000 MG PO (07:24)
[2024-05-11 07:26] VITALS: BP 110/59
[2024-05-11] MEDS: LOPRESSOR 12.5 MG TUBE ×2 (07:26→20:22)
--- NOTE | 2024-05-11 09:17 | HOSPNOTE ---
Addendum entered by Laxmi Grijalva RN 05/11/24 14:06:
Patient requested to speak with me to discuss hospice. All information was given and at this time patient does not wish for hospice services and asked about Palliative care.There is a consult placed for palliative care. I discussed with the patient
if he needs to discuss hospice at a later date to call me and gave the spouse all my contact information.
Original Note:
Spoke with spouse and she feels at this time the patient's pain seems much more controlled and now considering rehab. The spouse felt hospice is not appropriate at this time however wanted my contact information which was given. Will continue to
follow.
--- NOTE | 2024-05-11 10:15 | PN.CDI ---
CDI
- -
CDI:
Physician Documentation Request
Admit Date: 05/06/24 19:56
Dear Doctor Aleisha,
Patient admitted with metastatic esophageal carcinoma
05/07 N note, 'Patient admitted with: L abdominal dermal ulcer suspect from previous adhesive skin tear vs stage 2 pressure injury from chest tube...., L buttocks large deep dermal stage 2 pressure injury... R buttocks dark red fragile skin areas
suspect will be a stage 2 pressure injury....Mid spine with healing stage 2 pressure injury and stage 1 pressure injury.'
Physician documentation of the type and location of wounds is required for compliant documentation. Based on the above clinical findings and your assessment, please provide the following in your progress note:
Type (etiology) of ulcer/wound:
- Pressure (decubitus) ulcer
- Other
- Unable to determine
For a pressure ulcer, please also include the stage* of the ulcer:
- Stage 1 - Skin intact, non-blanchable redness
- Stage 2 - Partial thickness loss of dermis, includes intact or open blister
- Stage 3 - Full thickness tissue not including bone, tendon or muscle
- Stage 4 - Full thickness tissue loss, including exposed bone, tendon or muscle
- Unstageable - Full thickness loss in which the base of the ulcer is covered by slough (yellow, cruz, nichols, green or brown) and/or eschar (cruz, brown or black) in the wound bed.
- Unable to determine
Use of terms such as suspected, likely, concern for, or probable (associated with a specific diagnosis that is being evaluated, monitored, or treated as if it exists) are acceptable and can be coded in the inpatient setting, when documented at the
time of discharge.
Thank you,
Denise CHASE,RN,CCDS
CDI Specialist
Available via [facility] text
Please use your independent medical judgment in providing your response.
*Source: National Pressure Ulcer Advisory Panel (NPUAP)
--- NOTE | 2024-05-11 11:44 | W.PN.PAL2 ---
Today's Communication
-
Palliative Care Follow up
Patient seen at bedside. He reports pain is much better controlled thanks to increase in medication yesterday, now around 6. He feels more comfortable at rest. We reviewed his visit with hospice team yesterday. he reports that as his pain is
better controlled, he would like to trial rehab. encouraged him to work with PT today so that we can work on rehab referrals.
Denies other symptoms at present
is interested in palliative care follow up once home after rehab.
Assessment / Plan
-
Assessment/Plan:
Continue current regimen
patient now open to rehab
plan for outpatient palliative care follow up
Total time on floor 30 min
Reason for Admission
Illness Course/HPI
78 year old M with PMH of metastatic esophageal cancer s/p definitive chemo. Most recent scans have shown no evidence of disease. Complicated by recurrent esophageal strictures for which he follows GI. Underwent multiple dilations. Underwent
esophageal stent placement March 2024 which was complicated by esophageal perforation. CT at that time was stable and was discharged the next day. He returned to the ED 04/[address] at that time showing abscess in L mediastinum extending into
the L neck to C5. Transferred to [place].
While at [place] he underwent L neck washout and drain placement. Drains have since been removed. He remains on unasyn until 05/11. Peg tube was converted to J tube due to aspiration. Transferred back to for dispo. Awaiting PT/OT.
Pain is an issue - continues on fentanyl 25mcg, oxycodone liquid just increased to 10mg prn today. Follows with [place] oncology. Not currently on treatment, on surveillance only due to no evidence of disease on scans.
Functional Status
prior to hospitalization was indepdent with ADLs, iADLs. Has not been OOB, awaiting PT.
lives with spouse Annie. Annie has 2 children of her own, no children together. No DME.
Objective Data
-
Objective Data:
Vital Signs
Temp Pulse Resp BP Pulse Ox
98.1 F 86 18 110/59 94
05/11/24 07:26 05/11/24 07:26 05/11/24 07:26 05/11/24 07:26 05/11/24 07:26
Laboratory Results
05/09/24 05:49
05/10/24 05:44
Total Protein 5.1 g/dl (6.3-8.2) L 05/07/24 04:50
Albumin 2.3 g/dl (3.5-5.0) L 05/07/24 04:50
Palliative Performance Scale
Palliative Performance Scale:
PPS Level Ambulation Activity & Evidence of Disease Self Care Intake Conscious Level
100% Full Normal Activity & Work; Full Intake Full
No Evidence of Disease
90% Full Normal Activity & Work; Full Normal Full
Some Evidence of Disease
80% Full Normal Activity with Effort Full Normal or Full
Some Evidence of Disease Reduced
70% Reduced Unable Normal Job/Work Full Normal or Full
Significant Disease Reduced
60% Reduced Unable Hobby/Housework Occasional Normal or Full or Confusion
Significant Disease Assistance Reduced
50% Mainly Sit/Lie Unable to do Any Work Considerable Normal or Full or Confusion
Extensive Disease Assistance Req'd Reduced
40% Mainly in Bed Unable to do Most Activity Mainly Assistance Normal or Full or Drowsy;
Extensive Disease Reduced +/- Confusion
30% Totally Bed Unable to do Any Activity Total Care Normal or Full or Drowsy;
Bound Extensive Disease Reduced +/- Confusion
20% Totally Bed Bound Unable to do Any Activity Total Care Minimal to Full or Drowsy;
Extensive Disease Sips +/- Confusion
10% Totally Bed Bound Unable to do Any Activity Total Care Mouth Care Drowsy or Coma;
Extensive Disease Only +/- Confusion
0%
PPS Score Level:
Physical Exam
-
General: No Apparent Distress
Neuro: Awake and Alert
Psych: Calm
[2024-05-11 12:35] VITALS: BP 128/65; PULSE 73; O2SAT 95
[2024-05-11 14:51] VITALS: BP 128/65; PULSE 72; O2SAT 95
--- NOTE | 2024-05-11 15:37 | W.PN.HOSP.TC ---
Today's Communication/Plan
-
Patient reports improvement of pain with increased dose of Duragesic
Reattempt physical therapy evaluation.
Assessment / Plan
Assessment / Plan
Impression
Metastatic esophageal carcinoma.
Left neck abscess with extension to the mediastinum status post wash out at [facility] on 04/26/[address]
Dysphagia.
Left traumatic vocal cord paralysis
Status post jejunostomy exchange from PEG tube
Chronic normocytic anemia
Chronic steroid therapy
Malignant pain requiring narcotics
Hyponatremia
Severe protein calorie malnutrition with BMI of 21
Plan
Status post left neck abscess with extension to the mediastinum, status post washout by CT surgery at [facility] 04/26/24
Status post left chest tube removed on 04/30
Antibiotics narrowed to IV Unasyn via PICC line through 05/11/2024
Follow-up temperature curve and WBC
Plan is to keep chest tube in place with a imaging in 2 to 3 weeks for further determination.
Dysphagia
PEG tube removed; Status post jejunostomy
Nutrition consult.
Resume tube feeding as recommended
Left traumatic vocal cord paralysis.
Follow-up with ENT in 3 months
Malignant pain/palliative care.
Complains of severe pain predicting physical therapy evaluation.
Increase fentanyl patch to 37 mcg every 72 hours
Continue gabapentin
Continue oxycodone 10 mg every 4 hours as needed
Chronic normocytic anemia.
Check iron level and B12
Follow hemoglobin
Hyponatremia
Urine sodium consistent with increased ADH state/SIADH likely due to pain
Resume tube feeds with water flushes - decreased FWF
Follow BMP
Chronic steroid therapy.
Currently on hydrocortisone 25 mg IV daily. Transition to enteral route at the same dose.
Continue PPI
Discharge planning
Physical therapy assessment.
Palliative care consult
Anticipated Discharge: 24 - 48 hours
Subjective/Interval History
-
Date of Service: May 11, 2024
Objective Data
-
Vital Signs:
Vital Signs
Temp Pulse Resp BP Pulse Ox
98.1 F 86 18 110/59 94
05/11/24 07:26 05/11/24 07:26 05/11/24 07:26 05/11/24 07:26 05/11/24 07:26
I&O
05/10/24 05/11/24 05/12/24
06:59 06:59 06:59
Intake Total 1200 / 1200 1200 / 1200
Output Total 1635 / 1635 2625 / 2625
Balance -435 / -435 -1425 / -1425
Physical Exam
-
General: Well Developed and No Apparent Distress
HEENT: Normocephalic, Atraumatic and Moist Mucous Membranes
Respiratory: Clear to Auscultation
Cardiac: Regular Rhythm and S1/S2; Negative Murmur, Rub or Gallop
GI: Soft, Nontender, Nondistended and Normal Bowel Sounds; Negative Organomegaly
Rectal: Deferred by Provider
Musculoskeletal: No Clubbing, No Cyanosis and No Edema
Skin: Negative Rash
Neuro: Nonfocal/Grossly Intact
[2024-05-11 15:55] VITALS: BP 106/57
[2024-05-11] MEDS: LOVENOX 40 MG SC (16:55)
[2024-05-11] MEDS: NEURONTIN 600 MG PO (22:13)
[2024-05-11 23:35] VITALS: BP 113/55
[2024-05-12] MEDS: UNASYN IV ×4 (00:02→17:36)
[2024-05-12] MEDS: ROXICODONE ORAL SOLUTION 10 MG TUBE ×5 (01:22→18:37)
--- NOTE | 2024-05-12 06:30 | VATNOTE ---
BOTH LUMENS OF 5FR DL R PICC OCCLUDED. UNABLE TO FLUSH OR ASPIRATE. CATHFLO ORDER PENDING. PERIPHERAL SITE ESTABLISHED DOCUMENTED SO ORDERED ABX CAN BE ADMINISTERED. VAT TO FOLLOW WHEN [facility] AVAILABLE
[2024-05-12 08:00] VITALS: BP 108/60
[2024-05-12] MEDS: CATHFLO/ACTIVASE 2 MG INTRACATH (08:00)
[2024-05-12] MEDS: CORTEF 25 MG TUBE (08:14)
[2024-05-12] MEDS: PREVACID 30 MG TUBE (08:14)
[2024-05-12] MEDS: TYLENOL 1000 MG PO (08:15)
--- NOTE | 2024-05-12 08:50 | VATNOTE ---
CathFlo given as ordered. Both lumens now flush easily and have brisk blood return.
[2024-05-12] MEDS: LOPRESSOR 12.5 MG TUBE ×2 (10:09→21:25)
--- NOTE | 2024-05-12 14:19 | CM ---
CM met with [facility] today to discuss discharge to SNF. He was not very talkative, and seemed ambivalent about going to SNF.
He has not walked in the last month.
PT worked with [facility] yesterday and he anticipates them coming again tomorrow. Pain limits his interest in participating in therapy, however he does understand that he needs to participate in order to gain more strength.
CM will follow up to refer to area SNF facilities once additional clinical is available related to his participation and improvement in capabilities.
[2024-05-12 15:20] VITALS: BP 95/53
--- NOTE | 2024-05-12 16:33 | W.PN.HOSP.TC ---
Today's Communication/Plan
-
Physical therapy evaluation and placement to longterm facility
Assessment / Plan
Assessment / Plan
Impression
Metastatic esophageal carcinoma.
Left neck abscess with extension to the mediastinum status post wash out at [facility] on 04/26/[address]
Dysphagia.
Left traumatic vocal cord paralysis
Status post jejunostomy exchange from PEG tube
Chronic normocytic anemia
Chronic steroid therapy
Malignant pain requiring narcotics
Hyponatremia
Severe protein calorie malnutrition with BMI of 21
Plan
Status post left neck abscess with extension to the mediastinum, status post washout by CT surgery at [facility] 04/26/24
Status post left chest tube removed on 04/30
Antibiotics narrowed to IV Unasyn via PICC line through 05/11/2024
Follow-up temperature curve and WBC
Plan is to keep chest tube in place with a imaging in 2 to 3 weeks for further determination.
Dysphagia
PEG tube removed; Status post jejunostomy
Nutrition consult.
Resume tube feeding as recommended
Left traumatic vocal cord paralysis.
Follow-up with ENT in 3 months
Malignant pain/palliative care.
Complains of severe pain predicting physical therapy evaluation.
Increase fentanyl patch to 37 mcg every 72 hours
Continue gabapentin
Continue oxycodone 10 mg every 4 hours as needed
Chronic normocytic anemia.
Check iron level and B12
Follow hemoglobin
Hyponatremia
Urine sodium consistent with increased ADH state/SIADH likely due to pain
Resume tube feeds with water flushes - decreased FWF
Follow BMP
Chronic steroid therapy.
Currently on hydrocortisone 25 mg IV daily. Transition to enteral route at the same dose.
Continue PPI
Discharge planning
Physical therapy assessment.
Palliative care consult
Anticipated Discharge: Within 24 hours
Subjective/Interval History
-
Date of Service: May 12, 2024
Objective Data
-
Vital Signs:
Vital Signs
Temp Pulse Resp BP Pulse Ox
98.0 F 72 18 95/53 96
05/12/24 15:20 05/12/24 15:20 05/12/24 15:20 05/12/24 15:20 05/12/24 15:20
I&O
05/11/24 05/12/24 05/13/24
06:59 06:59 06:59
Intake Total 1200 / 1200 880 / 880 1320 / 1320
Output Total 2625 / 2625 650 / 650 475 / 475
Balance -1425 / -1425 230 / 230 845 / 845
Physical Exam
-
General: Well Developed and No Apparent Distress
HEENT: Normocephalic, Atraumatic and Moist Mucous Membranes
Respiratory: Clear to Auscultation
Cardiac: Regular Rhythm and S1/S2; Negative Murmur, Rub or Gallop
GI: Soft, Nontender, Nondistended and Normal Bowel Sounds; Negative Organomegaly
Rectal: Deferred by Provider
Musculoskeletal: No Clubbing, No Cyanosis and No Edema
Skin: Negative Rash
Neuro: Nonfocal/Grossly Intact
[2024-05-12] MEDS: NEURONTIN 300 MG TUBE (17:03)
[2024-05-12] MEDS: LOVENOX 40 MG SC (17:04)
[2024-05-12] MEDS: NEURONTIN 600 MG PO (21:31)
[2024-05-12 23:25] VITALS: BP 104/65
[2024-05-12] MEDS: DURAGESIC 25 MCG/HR PATCH 1 PATCH TRANSDERM (23:48)
[2024-05-13] MEDS: ROXICODONE ORAL SOLUTION 10 MG TUBE ×5 (02:16→22:10)
[2024-05-13 07:55] VITALS: BP 120/65
[2024-05-13] MEDS: NEURONTIN 300 MG TUBE ×2 (08:58→16:18)
[2024-05-13] MEDS: CORTEF 25 MG TUBE (08:59)
[2024-05-13] MEDS: PREVACID 30 MG TUBE (08:59)
[2024-05-13] MEDS: LOPRESSOR 12.5 MG TUBE ×2 (08:59→21:41)
[2024-05-13] MEDS: DURAGESIC 12 MCG/HR PATCH 1 PATCH TRANSDERM (13:15)
--- NOTE | 2024-05-13 15:13 | W.PN.HOSP.TC ---
Today's Communication/Plan
-
Continue supportive care.
Adjust analgesic regimen as required.
Ongoing disposition efforts for long-term facility
Assessment / Plan
Assessment / Plan
Impression
Metastatic esophageal carcinoma.
Left neck abscess with extension to the mediastinum status post wash out at [facility] on 04/26/[address]
Dysphagia.
Left traumatic vocal cord paralysis
Status post jejunostomy exchange from PEG tube
Chronic normocytic anemia
Chronic steroid therapy
Malignant pain requiring narcotics
Hyponatremia
Severe protein calorie malnutrition with BMI of 21
Plan
Status post left neck abscess with extension to the mediastinum, status post washout by CT surgery at [facility] 04/26/24
Status post left chest tube removed on 04/30
Antibiotics narrowed to IV Unasyn via PICC line through 05/11/2024
Follow-up temperature curve and WBC
Plan is to keep chest tube in place with a imaging in 2 to 3 weeks for further determination.
Dysphagia
PEG tube removed; Status post jejunostomy
Nutrition consult.
Resume tube feeding as recommended
Left traumatic vocal cord paralysis.
Follow-up with ENT in 3 months
Malignant pain/palliative care.
Complains of severe pain predicting physical therapy evaluation.
Increase fentanyl patch to 37 mcg every 72 hours
Continue gabapentin
Continue oxycodone 10 mg every 4 hours as needed
Chronic normocytic anemia.
Check iron level and B12
Follow hemoglobin
Hyponatremia
Urine sodium consistent with increased ADH state/SIADH likely due to pain
Resume tube feeds with water flushes - decreased FWF
Follow BMP
Chronic steroid therapy.
Currently on hydrocortisone 25 mg IV daily. Transition to enteral route at the same dose.
Continue PPI
Discharge planning
Physical therapy assessment.
Palliative care consult
Anticipated Discharge: 24 - 48 hours
Subjective/Interval History
-
Date of Service: May 13, 2024
Objective Data
-
Vital Signs:
Vital Signs
Temp Pulse Resp BP Pulse Ox
97.9 F 80 16 120/65 98
05/13/24 07:55 05/13/24 08:59 05/13/24 07:55 05/13/24 08:59 05/13/24 10:41
I&O
05/12/24 05/13/24 05/14/24
06:59 06:59 06:59
Intake Total 880 / 880 2280 / 2280
Output Total 650 / 650 1345 / 1345
Balance 230 / 230 935 / 935
Physical Exam
-
General: Well Developed and No Apparent Distress
HEENT: Normocephalic, Atraumatic and Moist Mucous Membranes
Respiratory: Clear to Auscultation
Cardiac: Regular Rhythm and S1/S2; Negative Murmur, Rub or Gallop
GI: Soft, Nontender, Nondistended and Normal Bowel Sounds; Negative Organomegaly
Rectal: Deferred by Provider
Musculoskeletal: No Clubbing, No Cyanosis and No Edema
Skin: Negative Rash
Neuro: Nonfocal/Grossly Intact
--- NOTE | 2024-05-13 15:52 | CM ---
Reviewed the chart notes and initially spoke with the patient at the bedside to discuss need for him to participate in PT for insurance auth purposes. PT/OT attempted to work with the patient today at the request of CM, but the patient refused. CM
spoke with the patient's spouse via telephone to update on need for the patient to participate a little in therapy for insurance to cover a SNF/rehab stay. She will encourage the patient to participate next time she speaks with him, probably
tomorrow. Attending and RN updated. CM continues to be available to patient/family and is monitoring medical plan for needs at discharge.
Plan: Discharge to SNF/rehab once auth obtained.
[2024-05-13 15:56] VITALS: BP 103/56
[2024-05-13] MEDS: LOVENOX 40 MG SC (17:47)
[2024-05-13] MEDS: NEURONTIN 600 MG PO (21:41)
[2024-05-13 23:27] VITALS: BP 97/56
[2024-05-14] MEDS: ROXICODONE ORAL SOLUTION 10 MG TUBE ×3 (02:11→11:46)
[2024-05-14 08:14] VITALS: BP 108/66
[2024-05-14] MEDS: LOPRESSOR 12.5 MG TUBE (08:14)
[2024-05-14] MEDS: CORTEF 25 MG TUBE (08:16)
[2024-05-14] MEDS: PREVACID 30 MG TUBE (08:16)
[2024-05-14] MEDS: NEURONTIN 300 MG TUBE (08:19)
[2024-05-14 09:28] VITALS: BP 100/58; PULSE 86; O2SAT 97
--- NOTE | 2024-05-14 11:12 | CM ---
[facility] able [facility] accept pt today. Pt prev was refusing PT due to pain, however, pt was able to work w/ PT today
Per spouse, agreeable to [facility] since [facility] not have any available beds
CM called -ask blue to initiate insurance authorization
Auth approved beginning today, 05/14 w/ NRD 05/18
Auth ref # [id number]
Ambulance auth ref # [id number]. Pt will have $175 co-pay for ambulance
Hospitalist updated, agreeable to d/c today
IMM reviewed, copy on chart
[facility]
Report: [phone]

Plan: [facility] via ambulance
--- NOTE | 2024-05-14 11:40 | W.DS.TRANS ---
DC Summary - Travel Journalist
-
Discharge Instructions:
Discharge Diagnosis/Procedures Metastatic esophageal carcinoma.
Left neck abscess with extension to the
mediastinum status post wash out at [facility] on
[address]
Dysphagia.
Left traumatic vocal cord paralysis
Status post jejunostomy exchange from PEG tube
Chronic normocytic anemia
Chronic steroid therapy
Malignant pain requiring narcotics
Hyponatremia
Severe protein calorie malnutrition with BMI of
21
Diet Tube feeding
Additional Diets Tube feeding Jevity 1.565 mL an hour. Water
flushes 50 mL an hour
Instructions:
Stand-Alone Forms:
Changes to Home Medications: No
Discharge Medications:
DC Medications w/original date entered in JMEA
acetaminophen 650 mg/20.3 mL oral suspension 650 mg feeding tube Q8 05/06/24
albuterol sulfate 2.5 mg/3 mL (0.083 %) solution for nebulization 2.5 mg inhalation QID PRN SOB 05/06/24
baclofen 0.5 ml J-tube Q8HPRN PRN muscle spasms/pain 05/06/24
bisacodyl 10 mg rectal suppository 10 mg [place] DAILY PRN constipation 05/06/24
chlorhexidine gluconate 4 % topical liquid 1 applic topical DAILY 05/06/24
enoxaparin 40 mg/0.4 mL subcutaneous syringe 40 mg SC DAILY DVT prevention 05/06/24
lansoprazole 30 mg J-tube DAILY 05/06/24
loperamide 1 mg/7.5 mL oral liquid 2 mg feeding tube BIDPRN PRN diarrhea 05/06/24
metoprolol tartrate 25 mg tablet 12.5 mg feeding tube BID 05/06/24
polyethylene glycol 3350 17 gram/dose oral powder 17 g feeding tube DAILYPRN PRN constipation 05/06/24
sennosides 8.8 mg/5 mL oral syrup (senna) 10 ml feeding tube BID PRN constipation 05/06/24
simethicone 20 mg/0.3 mL oral syringe (ORAL USE) 0.6 ml feeding tube Q6HPRN PRN flatulence 05/06/24
sodium chloride 3 % for nebulization 4 ml inhalation Q6H PRN cough 05/06/24
zinc oxide 1 ea topical Q6HPRN PRN breakdown 05/06/24
fentanyl 12 mcg/hr transdermal patch 1 patch transdermal Q72H #5 ea 05/14/24
fentanyl 25 mcg/hr transdermal patch 1 patch transdermal Q72H #5 ea 05/14/24
gabapentin 250 mg/5 mL oral solution 300 mg (6 mL) feeding tube BID@0800,1600 #473 mL 05/14/24
gabapentin 250 mg/5 mL oral solution 600 mg (12 mL) PO HS #473 mL 05/14/24
hydrocortisone 10 mg tablet 25 mg (2.5 x 10 mg) feeding tube DAILY #30 tabs 05/14/24
oxycodone 5 mg/5 mL oral solution 10 mg (10 mL) feeding tube Q4HPRN PRN PAIN #15 mL 05/14/24
Home Medication Changes
Pending Results: No
[2024-05-14 12:16] VITALS: BP 109/56
--- NOTE | 2024-05-14 15:32 | WOUNDNOTE ---
WOC RN note: t/c [facility], spoke with nurse Car who confirmed patient is on an air mattress.
== END 2024-05-14 13:20 | DRG 177 ==
LOC: 2 SOUTH 19:56
PROVIDERS: Radiology Diagnostic Radiology; Student in an Organized Health Care Education/Training Program; ADMITTING PHYSICIAN Hospitalist; ATTENDING PHYSICIAN Internal Medicine; FAMILY PHYSICIAN Family Medicine
PROC: 02H633Z Insertion of Infusion Device into Right Atrium, Percutaneous Approach (ICD-10-PCS; 2024-05-06)
DX: J85.3 Abscess of mediastinum (principal); E43 Unspecified severe protein-calorie malnutrition; E87.1 Hypo-osmolality and hyponatremia; C79.9 Secondary malignant neoplasm of unspecified site; G89.3 Neoplasm related pain (acute) (chronic); J38.00 Paralysis of vocal cords and larynx, unspecified; K22.2 Esophageal obstruction; R13.10 Dysphagia, unspecified; R62.7 Adult failure to thrive; D63.0 Anemia in neoplastic disease; Z68.21 Body mass index [BMI] 21.0-21.9, adult; Z79.891 Long term (current) use of opiate analgesic; Z79.52 Long term (current) use of systemic steroids; Z92.21 Personal history of antineoplastic chemotherapy; Z85.01 Personal history of malignant neoplasm of esophagus; Z93.4 Other artificial openings of gastrointestinal tract status; Z96.89 Presence of other specified functional implants; L89.322 Pressure ulcer of left buttock, stage 2; L89.892 Pressure ulcer of other site, stage 2; L89.312 Pressure ulcer of right buttock, stage 2
CPT/HCPCS: 71045; 80048; 80053; 82607; 82728; 82962; 83540; 83550; 83935; 84300; 85025; 85027; 87070; 97163; 97167; 97530; J2997

== ENCOUNTER 2024-05-14 21:49 | Emergency (ER) | payer OTHER, SELFPAY ==
[2024-05-14 22:01] VITALS: BP 138/63
[2024-05-14 23:04] VITALS: BP 111/74
--- NOTE | 2024-05-14 23:43 | ED.GENMED ---
History of Present Illness
General
Chief Complaint: Catheter/Tube Problem
Source: patient
Exam Limitations: none
Time Seen by Provider: 05/14/24 23:37
History of Present Illness
History of Present Illness:
See MDM
Past History
Past History
ED Past Medical History: Cancer (Stage IV metastatic esophageal cancer)
ED Past Surgical History: Other (Liver biopsy)
Social History
Tobacco: Smoker
Alcohol: Occasional
Drug: None
Personal:
Living: with family (With fijeannie�)
Phy Exam
Physical Exam
Physical Exam:
See MDM
Course
Orders/Labs/Results
Orders:
Orders
05/14/24 23:43
Oxycodone [Roxicodone Oral Solution] 15 mg TUBE ONCE ONE
Vital Signs
Initial and Last Documented VS:
Initial Vital Signs
Temp Pulse Resp BP Pulse Ox
98 F 87 16 138/63 95
05/14/24 22:01 05/14/24 22:01 05/14/24 22:01 05/14/24 22:01 05/14/24 22:01
Last Documented Vital Signs
Temp Pulse Resp BP Pulse Ox
99.2 F 85 22 111/74 97
05/14/24 23:04 05/15/24 00:02 05/14/24 23:04 05/14/24 23:04 05/15/24 00:02
MDM/Problems Addressed
Differential Diagnosis Includes:
HPI and MDM Narrative:
78-year-old male presenting from [facility]. Patient has a JG tube. [facility] apparently does not have the connectors to provide his meds or tube feeds. He was sent in to obtain the [employer]NF[employer] connectors or possibly replace the tube.
Patient sitting in bed comfortably. Will provide his pain medicine
Will look for the ENFit connector
Physical exam
General: Sitting in bed comfortably
HEENT: protecting airway
Neck: appears supple
CV: No evidence of cyanosis
Resp: No accessory muscle use
Abd: Non-distended
Extremities: No deformities
Neuro: alert
Psych: Normal affect
Skin: Intact
Problems Addressed including Acute and Chronic Conditions affecting care:
1. J tube malfunction
Acuity: acute
Prognosis: stable
Details: will look for [employer] connectors
Updates
12:30 AM nursing staff indicate that they found the connectors and [facility] willing to take him back
Drug therapy (if applicable): OTC meds, please see d/c instruction regarding Rx drugs
Amount and/or Complexity of Data Reviewed
Clinical info obtained from: Patient
External data reviewed: N/A
Labs I independently reviewed (but not limited to): N/A
Radiology: N/A
Pulse Ox: not hypoxic
EKG independently reviewed: N/A
Motor Route Carrier: N/A
Critical Care: N/A
Risk of Complication:
Social Determinants of health: Good social support
Discussed with other providers: N/A
Escalation of Care includes Admit/Obs: After being observed in the Emergency Department, pt stable for discharge.
Occasional wrong word or 'sound a like' substitutions may have occurred due to the inherent limitations of voice recognition software. Read the chart carefully and recognize, using context, where substitutions have occurred.
*Critical Care Note
Total Time (30-74mins, 75-104mins- exclusive of procedures): Not Applicable
ED Attending Note
-
Portions of this chart may have been created with voice recognition software.� Occasional wrong word or��sound alike� substitutions may have occurred due to the inherent limitations of voice recognition software.
Discharge Plan
Departure
Patient Disposition: Home (Routine Discharge)
Date of Disposition: 05/15/24
Time of Disposition: 00:38
Patient with high blood pressure during this ER visit?: No
Discharge Problem:
Feeding tube dysfunction
Prescriptions:
No Action
albuterol sulfate 2.5 mg /3 mL (0.083 %) Solution For Nebulization
2.5 mg INHALATION QID PRN (Reason: SOB)
sodium chloride 3 % Solution For Nebulization
4 ml INHALATION Q6H PRN (Reason: cough)
sennosides [senna] 8.8 mg/5 mL Syrup
10 ml feeding tube BID PRN (Reason: constipation)
bisacodyl 10 mg Suppository
10 mg DC DAILY PRN (Reason: constipation)
polyethylene glycol 3350 17 gram/dose Powder
17 g feeding tube DAILYPRN PRN (Reason: constipation)
chlorhexidine gluconate 4 % Liquid
1 applic TOPICAL DAILY
Rx Instructions:
'To affected area daily'
enoxaparin 40 mg/0.4 mL Syringe
40 mg SC DAILY
metoprolol tartrate 25 mg Tablet
12.5 mg feeding tube BID
loperamide 1 mg/7.5 mL Liquid
2 mg feeding tube BIDPRN PRN (Reason: diarrhea)
zinc oxide Paste
1 ea TOPICAL Q6HPRN PRN (Reason: breakdown)
acetaminophen 650 mg/20.3 mL Suspension
650 mg feeding tube Q8
Rx Instructions:
Via small bowel tube
simethicone 20 mg/0.3 mL Syringe
0.6 ml feeding tube Q6HPRN PRN (Reason: flatulence)
baclofen 10 mg/ml solution
0.5 ml J-tube Q8HPRN PRN (Reason: muscle spasms/pain)
Rx Instructions:
Via smal bowel tube
lansoprazole tablet
30 mg J-tube DAILY
Rx Instructions:
Disintigrating tablet
hydrocortisone 10 mg Tablet
25 mg feeding tube DAILY Qty: 30 0RF
fentanyl 25 mcg/hr Patch 72 Hour
1 patch transdermal Q72H Qty: 5 0RF
fentanyl 12 mcg/hr Patch 72 Hour
1 patch transdermal Q72H Qty: 5 0RF
gabapentin 250 mg/5 mL Solution
600 mg PO HS Qty: 473 0RF
gabapentin 250 mg/5 mL Solution
300 mg feeding tube BID@0800,1600 Qty: 473 0RF
oxycodone 5 mg/5 mL Solution
10 mg feeding tube Q4HPRN PRN (Reason: PAIN) Qty: 15 0RF
Referrals:
Ramiro Michael I., [Family Provider] -
Activity Restrictions/Additional Instructions:
Please return for any worsening symptoms.
You may return at any time if you have further concerns.
Please follow up with your doctor at the first available appointment, preferably this week.
Thank you for choosing [facility].
Interventions
Interventions:
*Risk Screen - Suicide Last Done: 05/14/24 22:01
*General Assessment Last Done: 05/14/24 22:01
*Neglect/Abuse Screening Last Done: 05/14/24 22:01
Discharge Date and Time
Print Language: [id number]
[2024-05-15] MEDS: ROXICODONE ORAL SOLUTION 15 MG TUBE (00:03)
[2024-05-15] MEDS: ROXICODONE ORAL SOLUTION 15 MG PO (03:12)
== END 2024-05-15 04:15 | disposition home or self-care (01) ==
LOC: EMR 21:49
PROVIDERS: EMERGENCY PHYSICIAN Student in an Organized Health Care Education/Training Program; FAMILY PHYSICIAN Internal Medicine
DX: K94.23 Gastrostomy malfunction (principal)
CPT/HCPCS: 99283